=== PATIENT | female | born 2000 | race Caucasian/White ===

== ENCOUNTER 2021-04-17 12:03 | Emergency (ER) | payer OTHER, SELFPAY ==
[2021-04-17 14:30] VITALS: BP 126/77; PULSE 91; RESP 18; TEMP 37.4; O2SAT 100; BMI 35.6
--- NOTE | 2021-04-17 15:08 | HMH.EDUTC ---
[facility] [place] Clinical Impression: Strep throat Disposition: Home, Self-Care Condition on Discharge: Good Instructions: DI for Strep Throat, Strep Throat, Amoxicillin Additional Instructions: *Monitor Temp, Over the counter Motrin or Tylenol as directed/as needed Tylenol every 4 hours and Motrin every 6 hours (as long as your family doctor has told you that you can take it) for fever or pain. and straight to ER if unable to lower temp less than 101.0 after medication given *Warm salt water gargles may help to soothe the throat *Throat Lozenges *Warm fluids like tea with honey may help to soothe the throat *Sleep elevated *Humidifier/Vaporizer *Flonase 2 sprays in each nostril daily but be aware that it may take 2-3 days before you notice improvement Take antibiotics as prescribed Follow up IMMEDIATELY for new or worsening symptoms or no Noticeable improvement over the next 48-72 hours. 911 for difficulty breathing or swallowing Prescriptions: Amoxicillin [Amoxicillin 875MG Tab] 875 mg PO Q12H #20 tab Transmission Status: Pending to [facility] # Fluticasone Propionate [Flonase 50mcg nasal spray 16gm] 1 spr NS DAILY #1 each Transmission Status: Pending to [facility] # Referrals: Marysol Santacruz APRN [Primary Care Provider] - As needed Time of Disposition: 15:13 Medical Decision Making - Travis Inquiry Pt receiving controlled substance: No Travis was queried for this patient: No Vital Signs: 04/17/21 14:30 Temperature 99.3 F Temperature Source Oral Pulse Rate [Right Brachial] 91 H Respiratory Rate 18 Blood Pressure [Right Arm] 126/77 Blood Pressure Mean [Right Arm] 93 Blood Pressure Source [Right Arm] Automatic Cuff Blood Pressure Position [Right Arm] Sitting 02 Sat by Pulse Oximetry 100 Oxygen Delivery Method Room Air - Lab Data Lab results reviewed: Yes: I reviewed the patient's lab results. [facility] [place] - General Stated complaint: Runny nose,Cough,head congestion Time Seen by Provider: 04/17/21 15:08 Mode of Arrival: Ambulatory Source of Information: Patient Limitations: No Limitations Description of Symptoms (Recalled from Triage Doc. by RN): PATIENT C/O RUNNY NOSE, COUGH, SORE THROAT, AND CONGESTION HEENT Symptoms (Recalled from RN notes): Yes Resp Symptoms (Recalled from RN notes): No Skin Symptoms (Recalled from RN notes): No MS Symptoms (Recalled from RN notes): No Functional Status (Recalled from RN notes): WNL - History of Present Illness Provider Complaint: Patient states that she has been having cough, sore throat, and sinus congestion and pressure States that last night she looked at her throat and noticed it was red and swollen - Related Data Previous Rx's Medication Instructions Recorded Azithromycin [Zithromax 250mg 250 mg PO DIRECTED #6 tab 10/10/19 tab] Amoxicillin [Amoxicillin 875MG 875 mg PO Q12H #20 tab 04/17/21 Tab] Fluticasone Propionate [Flonase 1 spr NS DAILY #1 each 04/17/21 50mcg nasal spray 16gm] Allergies Allergy/AdvReac Type Severity Reaction Status Date / Time No Known Allergies Allergy Verified 10/20/18 16:06 - Worker's Comp Is this a Worker's Comp case?: No [facility] History - Hepatitis A Screen Drug use history?: No High risk sexual behaviors?: No History of sexually transmitted infection?: No Currently employed?: No Childcare worker?: No Do you have indoor plumbing?: Yes Do you have electricity?: Yes Attestation statement:: This patient has been screened for Hepatitis A risk factors. I have reviewed the patient's past medical history: Yes Medical History: Denies:: Cancer, Diabetes Mellitus Type 1, Diabetes Mellitus Type 2, Hypertension, MRSA Laterality Cases: Bilateral: Myringotomy (Ear Tubes), Tonsillectomy Amputation: No Fractures: No - Social History Smoking Status: Current every day smoker Tobacco Type: cigarettes # Packs/Day (cigarettes): 1 Alcohol Intake: never Oc
[2021-04-17 15:16] VITALS: BP 126/77; PULSE 91; RESP 18; TEMP 37.4; O2SAT 100
[2021-04-17 22:16] LABS: UTC Strep Screen (Rapid) Positive (Negative)
== END 2021-04-17 15:39 | disposition home or self-care (01) ==
PROVIDERS: Emergency Provider Nurse Practitioner; PCP Nurse Practitioner Family
DX: J02.0 Streptococcal pharyngitis (principal)
CPT/HCPCS: 87880; 99202; G0463

== ENCOUNTER 2021-08-27 11:44 | Emergency (ER) | payer OTHER, SELFPAY ==
[2021-08-27 14:57] VITALS: BP 117/80; PULSE 95; RESP 18; TEMP 37.7; O2SAT 100; BMI 36.0
[2021-08-27 15:21] LABS: UTC Influenza A Antigen Negative (Negative)
[2021-08-27 15:22] LABS: UTC Influenza B Antigen Negative (Negative)
[2021-08-27 15:44] LABS: Strep Scrn Group A (Rapid) Negative (Negative)
--- NOTE | 2021-08-27 16:26 | HMH.EDUTC ---
[facility] [place] Clinical Impression: Viral syndrome, Exposure to COVID-19 virus, Bronchitis Disposition: Home, Self-Care Condition on Discharge: Good Instructions: DI for Acute Bronchitis, DI for Viral Syndrome, DI for COVID-19 (Suspected or Confirmed ), Preventing the Spread of Coronavirus Discharge Instructions Additional Instructions: Drink plenty of fluids. Take tylenol or ibuprofen for pain or fever. Take the medications as directed. Follow up with your regular doctor. GO TO THE ER FOR ANY WORSENING SYMPTOMS Quarantine until you know the results of your covid-19 test. Notify your school or workplace of your results and follow their instructions regarding return to work/school. Prescriptions: Brompheniramine/Pseudoephed/Dm [Bromfed Dm Cough Syrup] 5 ml PO Q6HP PRN #240 ml PRN Reason: Cough Transmission Status: Received by [facility] methylPREDNISolone [Medrol] 4 mg PO DIRECTED 6 Days #21 packet Transmission Status: Received by [facility] Azithromycin [Z-Chaz 250mg Tab*] 250 mg PO UD DOSE PK #6 tab Transmission Status: Received by [facility] Referrals: Uri Nino MD [Primary Care Provider] - Time of Disposition: 16:36 Medical Decision Making - Medical Records Medical records reviewed: No: I reviewed the patient's medical records. - Travis Inquiry Pt receiving controlled substance: No Vital Signs: 08/27/21 14:57 08/27/21 16:42 Temperature 99.9 F H 99.9 F H Temperature Source Oral Pulse Rate 95 H Pulse Rate [Left] 95 H Respiratory Rate 18 18 Blood Pressure 117/80 Blood Pressure [Right Arm] 117/80 Blood Pressure Mean [Right Arm] 92 02 Sat by Pulse Oximetry 100 - Lab Data Lab results reviewed: Yes: I reviewed the patient's lab results. Lab Results 08/27/21 15:01: Group A Strep Rapid Negative 08/27/21 15:01: Influenza Type A Ag Negative, Influenza Type B Ag Negative Orders (Tests/Meds): ORDERS Category Date Time Status Strep Screen Confirmation Stat Micro 08/27/21 15:01 Received [facility] [place] HPI - General Stated complaint: cough, weakness Time Seen by Provider: 08/27/21 15:40 Mode of Arrival: Ambulatory Source of Information: Patient Limitations: No Limitations Description of Symptoms (Recalled from Triage Doc. by RN): pt c/o a cough, nasal congestion/drainage, and weakness since yesterday. HEENT Symptoms (Recalled from RN notes): Yes (congestion) Resp Symptoms (Recalled from RN notes): Yes (cough) Skin Symptoms (Recalled from RN notes): No MS Symptoms (Recalled from RN notes): No Functional Status (Recalled from RN notes): wnl - History of Present Illness Provider Complaint: She c/o a nonproductive cough, chest congestion, low grade fever, and body aches since yesterday. - Related Data Previous Rx's Medication Instructions Recorded Azithromycin [Zithromax 250mg 250 mg PO DIRECTED #6 tab 10/10/19 tab] Amoxicillin [Amoxicillin 875MG 875 mg PO Q12H #20 tab 04/17/21 Tab] Fluticasone Propionate [Flonase 1 spr NS DAILY #1 each 04/17/21 50mcg nasal spray 16gm] Azithromycin [Z-Chaz 250mg Tab*] 250 mg PO UD DOSE PK #6 tab 08/27/21 Brompheniramine/Pseudoephed/Dm 5 ml PO Q6HP PRN #240 ml 08/27/21 [Bromfed Dm Cough Syrup] methylPREDNISolone [Medrol] 4 mg PO DIRECTED 6 Days #21 08/27/21 packet Allergies Allergy/AdvReac Type Severity Reaction Status Date / Time No Known Allergies Allergy Verified 10/20/18 16:06 - Worker's Comp Is this a Worker's Comp case?: No [facility] History - Hepatitis A Screen Drug use history?: No High risk sexual behaviors?: No History of sexually transmitted infection?: No Currently employed?: No Childcare worker?: No Do you have indoor plumbing?: Yes Do you have electricity?: Yes Attestation statement:: This patient has been screened for Hepatitis A risk factors. I have reviewed the patient's past medical history: Yes Medic
[2021-08-27 16:42] VITALS: BP 117/80; PULSE 95; RESP 18; TEMP 37.7
== END 2021-08-27 16:42 | disposition home or self-care (01) ==
PROVIDERS: Emergency Provider Nurse Practitioner Family; PCP Family Medicine
DX: B34.9 Viral infection, unspecified (principal); Z20.822 Contact with and (suspected) exposure to COVID-19; F17.210 Nicotine dependence, cigarettes, uncomplicated
CPT/HCPCS: 87430; 87804; 99203; C9803; G0463; U0003; U0005

== ENCOUNTER → 2021-10-05 16:06 | Outpatient (CLI) | payer OTHER, SELFPAY | PROVIDERS: Visit Provider Obstetrics & Gynecology | DX: Z34.90 Encounter for supervision of normal pregnancy, unspecified, unspecified trimester (principal) | CPT/HCPCS: 84702 ==

== ENCOUNTER → 2021-10-09 14:14 | Outpatient (CLI) | payer OTHER, SELFPAY | PROVIDERS: Visit Provider Obstetrics & Gynecology | DX: Z34.90 Encounter for supervision of normal pregnancy, unspecified, unspecified trimester (principal) | CPT/HCPCS: 36415; 84702 ==

== ENCOUNTER → 2021-10-12 14:58 | Outpatient (CLI) | payer OTHER, SELFPAY ==
--- NOTE | 2021-10-12 14:58 | US_ITS ---
FINAL REPORT CLINICAL HISTORY: Dates FINDINGS: PELVIC ULTRASOUND A single living intrauterine is present. A yolk sac is present. Cardiac activity is confirmed at 146 beats per minute. Estimated gestational age is 7 weeks 3 days based on the crown-rump length of 1.2 cm. Appropriate amount of fluid is present. The right ovary measures 2.5 cm. The left ovary measures 3.2 cm. IMPRESSION: Single living intrauterine with a gestational age of 7 weeks 3 days. Reviewed, Interpreted and Dictated by Solo Coats III, MD Transcribed by Jeison Enamorado Authenticated by Solo Coats III, MD on 10/12/2021 04:19:09 PM [facility]
[2021-10-12 16:34] LABS: Basophils # 0.1 K/mm3 (0-0.2); Basophils % 0.8 % (0.1-2.0); Eosinophils # 0.1 K/mm3 (0.0-0.4); Eosinophils % 0.6 % (0.1-12.0); Hematocrit 38.9 % (37.0-47.0); Hemoglobin 12.5 g/dL (12.2-16.2); Lymphocytes # 2.5 K/mm3 (0.7-4.5); Lymphocytes % 23.7 % (10-50); Mean Corpuscular HGB Conc 32.3 g/dL (31.8-35.4); Mean Corpuscular Hemoglobin 28.3 pg (27.0-31.2); Mean Corpuscular Volume 87.8 fl (81-99); Mean Platelet Volume 9.3 fl (7.4-10.4); Monocytes # 0.4 K/mm3 (0.1-1.0); Monocytes % 3.8 % (1.7-9.3); Neutrophils # 7.4 K/mm3 (1.8-7.8); Neutrophils % 71.1 % (37.0-80.0); Platelet Count 251 K/mm3 (142-424); Red Blood Count 4.42 M/mm3 (4.20-5.40); Red Cell Distribution Width 13.6 % (11.5-17.5); White Blood Count 10.5 K/mm3 (4.8-10.8)
[2021-10-14 08:15] LABS: HIV Screen 4th Generation wRfx Non Reactive (Non Reactive)
[2021-10-14 11:18] LABS: Hepatitis B Surface Antigen Negative (Negative); Hepatitis C Antibody <0.1 s/co ratio (0.0-0.9); Rapid Plasma Reagin Ab Titer Non Reactive (NonRea<1:1)
== END ==
PROVIDERS: PCP Family Medicine; Visit Provider Obstetrics & Gynecology
DX: Z34.90 Encounter for supervision of normal pregnancy, unspecified, unspecified trimester (principal)
CPT/HCPCS: 36415; 76801; 85025; 86592; 86703; 86762; 86850; 87340; 87380; G0432

== ENCOUNTER → 2022-01-11 13:56 | Outpatient (CLI) | payer OTHER, SELFPAY ==
--- NOTE | 2022-01-11 13:56 | US_ITS ---
FINAL REPORT CLINICAL HISTORY: Ob complete FINDINGS: There is a single live intrauterine gestation. Presentation is cephalic. The cervix is closed and measures 3.16 cm. Placenta is posterior grade. movement is noted. Are rate is measured at 132 beats per minute. Three-vessel cord with satisfactory umbilical cord insertion. Four-chamber heart is noted. brain and ventricles are unremarkable. Chest and diaphragm are unremarkable. ABDOMEN: Both kidneys are unremarkable. SPINE: No anomalies identified. AMNIOTIC FLUID: Appropriate amount. MEASUREMENTS: ULTRASOUND AGE: 21 weeks 0 days. GESTATION AGE: 20 weeks 3 days. ESTIMATED WEIGHT: 383 g GROWTH PERCENTILE: 70% BPD: 5 cm corresponding with 21 weeks 1 days. OFD: 6.6 cm corresponding with 21 weeks 6 days. HC: 18.4 cm corresponds with 20 weeks 6 days. AC: 15.8 cm corresponding with 21 weeks 0 days. FL: 3.4 cm corresponding with 20 weeks 6 days. CEREBELLUM: 2 cm corresponding with 20 weeks 3 days. HUMERUS: 3.3 cm corresponding with 21 weeks 1 days. HC/AC: 1.16 CI: 75% FL/BPD: 69% FL/AC: 22% IMPRESSION: Single living IUP with an ultrasound age of 21 weeks 0 days. Reviewed, Interpreted and Dictated by Solo Coats III, MD Transcribed by Linsey Black Authenticated and . [facility]
== END ==
PROVIDERS: PCP Emergency Medicine; Visit Provider Obstetrics & Gynecology
DX: Z34.90 Encounter for supervision of normal pregnancy, unspecified, unspecified trimester (principal)
CPT/HCPCS: 76811

== ENCOUNTER → 2022-02-20 08:27 | Outpatient (CLI) | payer OTHER, SELFPAY ==
[2022-02-20 08:43] LABS: Basophils # 0.1 K/mm3 (0-0.2); Basophils % 0.7 % (0.1-2.0); Eosinophils # 0.1 K/mm3 (0.0-0.4); Eosinophils % 0.5 % (0.1-12.0); Hematocrit 35.7 % (37.0-47.0); Hemoglobin 10.8 g/dL (12.2-16.2); Lymphocytes # 2.9 K/mm3 (0.7-4.5); Lymphocytes % 19.9 % (10-50); Mean Corpuscular HGB Conc 30.4 g/dL (31.8-35.4); Mean Corpuscular Hemoglobin 28.6 pg (27.0-31.2); Mean Corpuscular Volume 94.1 fl (81-99); Mean Platelet Volume 10.1 fl (7.4-10.4); Monocytes # 0.6 K/mm3 (0.1-1.0); Neutrophils % 74.8 % (37.0-80.0); Platelet Count 263 K/mm3 (142-424); Red Blood Count 3.79 M/mm3 (4.20-5.40); Red Cell Distribution Width 13.5 % (11.5-17.5); White Blood Count 14.7 K/mm3 (4.8-10.8)
[2022-02-20 08:53] LABS: Glucose,Fasting 102 mg/dl (74-100)
[2022-02-20 10:17] LABS: Glucose 1 Hour 204 mg/dL (74-100)
== END ==
PROVIDERS: PCP Nurse Practitioner Family; Visit Provider Obstetrics & Gynecology
DX: Z34.90 Encounter for supervision of normal pregnancy, unspecified, unspecified trimester (principal)
CPT/HCPCS: 36415; 82951; 85025

== ENCOUNTER → 2022-04-06 13:05 | Outpatient (CLI) | payer OTHER, SELFPAY ==
--- NOTE | 2022-04-06 13:05 | US_ITS ---
FINAL REPORT CLINICAL HISTORY: LGA with KIERA FINDINGS: There is a single live intrauterine gestation. Presentation is cephalic. Placenta is posterior, high, grade 2. movement and practice breathing is seen. Heart rate is 149 beats per minute. AMNIOTIC FLUID: Appropriate amount. KIERA: 13.3 cm MEASUREMENTS: ULTRASOUND AGE: 34 weeks 2 days. GESTATION AGE: 32 weeks 4 days. ESTIMATED WEIGHT: 2248 g GROWTH PERCENTILE: AUA percentile is 27%. LMP percentile is 75% BPD: 8.8 cm corresponding with 35 weeks 3 days. OFD: 10.9 cm corresponding with 35 weeks 0 days. HC: 31.0 cm corresponding with 34 weeks 5 days. AC: 29.2 cm corresponding with 33 weeks 2 days. FL: 6.5 cm corresponding with 33 weeks 5 days. HC/AC: 1.06 CI: 80% FL/BPD: 75% FL/AC: 22% IMPRESSION: Single living IUP with an ultrasound age of 34 weeks 2 days. KIERA of 13.3 cm Reviewed, Interpreted and Dictated by Ortega Painter MD Transcribed by Linsey Black Authenticated and [facility]
== END ==
PROVIDERS: PCP Nurse Practitioner Family; Visit Provider Obstetrics & Gynecology
DX: O36.60X0 Maternal care for excessive fetal growth, unspecified trimester, not applicable or unspecified (principal)
CPT/HCPCS: 76816; 76819

== ENCOUNTER 2022-04-13 14:04 | Outpatient (CLI) | payer OTHER, SELFPAY ==
[2022-04-13 14:21] VITALS: BMI 36.3
[2022-04-13 14:46] VITALS: BP 124/81; PULSE 99; RESP 18; TEMP 36.7; O2SAT 100; BMI 36.3
[2022-04-13 14:47] LABS: Microscopic, Urine URINE MICROSCOPIC (MICROSCOPIC)
[2022-04-13 14:56] LABS: Appearance,Urine CLEAR (Clear); Bilirubin,Urine Negative (Negative); Blood, Urine Negative (Negative); Color,Urine YELLOW (Yellow); Glucose,Urine (UA) Negative (Negative); Ketones,Urine 1+ (Negative); Leukocyte Esterase,Urine Negative (Negative); Nitrate,Urine Negative (Negative); PH,Urine 6.5 (5.0-8.5); Protein,Urine Negative (Negative); Urobilinogen,Urine 0.2 EU/dl (0.2)
[2022-04-13 15:07] LABS: Bacteria,Urine Trace /lpf; RBC,Urine Occasional #/hpf (0-3); Squamous Epithelial Cell,Urine Occasional #/hpf (0-5)
[2022-04-13 15:08] LABS: Amphetamine/Metha Screen,Urine Negative ng/ml (<1000)
[2022-04-13 15:09] LABS: Barbiturates Screen,Urine Negative ng/ml (<200); Benzodiazepines Screen,Urine Negative ng/ml (<200)
[2022-04-13 15:10] LABS: Cannabinoid Screen,Urine Negative ng/ml (<50)
[2022-04-13 15:11] LABS: Cocaine Screen,Urine Negative ng/ml (<300); Methadone Screen,Urine Negative ng/ml (<300)
[2022-04-13 15:12] LABS: Opiate Screen,Urine Negative ng/ml (<300)
[2022-04-13 15:13] LABS: Phencyclidine Screen,Urine Negative ng/ml (<25)
[2022-04-13 15:25] LABS: Fetal Fibronectin (Rapid) Negative (Negative)
== END 2022-04-13 16:04 | disposition home or self-care (01) ==
LOC: OBOUT 14:06 → OB 14:06
PROVIDERS: PCP Emergency Medicine; Visit Provider Obstetrics & Gynecology
DX: O47.03 False labor before 37 completed weeks of gestation, third trimester (principal); Z3A.33 33 weeks gestation of pregnancy
CPT/HCPCS: 59025; 80305; 81001; 82731; 96365; G0463

== ENCOUNTER 2022-04-19 01:54 | Outpatient (CLI) | payer OTHER, SELFPAY ==
[2022-04-19 02:11] VITALS: RESP 18; BMI 37.8
[2022-04-19 02:46] LABS: Microscopic, Urine URINE MICROSCOPIC (MICROSCOPIC)
[2022-04-19 02:49] LABS: Appearance,Urine CLEAR (Clear); Bilirubin,Urine Negative (Negative); Blood, Urine Negative (Negative); Color,Urine YELLOW (Yellow); Glucose,Urine (UA) Negative (Negative); Ketones,Urine Negative (Negative); Leukocyte Esterase,Urine Negative (Negative); Nitrate,Urine Negative (Negative); Protein,Urine Negative (Negative); Specific Gravity, Urine >= 1.030 (1.005-1.030); Urobilinogen,Urine 0.2 EU/dl (0.2)
[2022-04-19 03:00] LABS: Barbiturates Screen,Urine Negative ng/ml (<200)
[2022-04-19 03:01] LABS: Amphetamine/Metha Screen,Urine Negative ng/ml (<1000); Benzodiazepines Screen,Urine Negative ng/ml (<200)
[2022-04-19 03:02] LABS: Cannabinoid Screen,Urine Negative ng/ml (<50)
[2022-04-19 03:03] LABS: Cocaine Screen,Urine Negative ng/ml (<300); Methadone Screen,Urine Negative ng/ml (<300)
[2022-04-19 03:04] LABS: Opiate Screen,Urine Negative ng/ml (<300)
[2022-04-19 03:05] LABS: Phencyclidine Screen,Urine Negative ng/ml (<25)
[2022-04-19 03:15] LABS: Bacteria,Urine Trace /lpf; Squamous Epithelial Cell,Urine Occasional #/hpf (0-5); WBC,Urine Occasional #/hpf (0-3)
[2022-04-19 03:23] LABS: Fetal Fibronectin (Rapid) Negative (Negative)
== END 2022-04-19 04:46 | disposition home or self-care (01) ==
LOC: OBOUT 01:55 → OB 01:56
PROVIDERS: PCP Emergency Medicine; Visit Provider Obstetrics & Gynecology
DX: O47.03 False labor before 37 completed weeks of gestation, third trimester (principal); Z3A.34 34 weeks gestation of pregnancy
CPT/HCPCS: 80305; 81001; 82731

== ENCOUNTER → 2022-04-24 13:04 | Outpatient (CLI) | payer OTHER, SELFPAY ==
--- NOTE | 2022-04-24 13:10 | US_ITS ---
FINAL REPORT CLINICAL HISTORY: lga; gdm; amniotic fluid is 23.3 cm FINDINGS: There is a single live intrauterine gestation. Presentation is cephalic. Placenta is posterior, fundal and grade 2. Cardiac activity is confirmed at 146 bpm. The the fetus is active. AMNIOTIC FLUID: Appropriate amount. SD ratio: 2.1 MEASUREMENTS: ULTRASOUND AGE: 37 weeks 0 days. GESTATION AGE: 35 weeks 1 days. ESTIMATED WEIGHT: 3042 g GROWTH PERCENTILE: 89% BPD: 9.3 cm consistent with 37 weeks 5 days. OFD: 11.3 cm consistent with 37 weeks 5 days. HC: 32.4 cm consistent with 36 weeks 5 days. AC: 33.1 cm consistent with 37 weeks 0 days. FL: 7.1 cm consistent with 36 weeks 1 days. HC/AC: 0.98 CI: 82% FL/BPD: 76% FL/AC: 21% Breathin Movement: 2 Tone: 2 Fluid volume: 2 BPP score: 8/8 IMPRESSION: Single living IUP with an ultrasound age of 37 weeks 0 days. Reviewed, Interpreted and Dictated by Solo Coats III, MD Transcribed by Jeison Enamorado Authenticated and [facility]
== END ==
PROVIDERS: PCP Emergency Medicine; Visit Provider Obstetrics & Gynecology
DX: O36.60X0 Maternal care for excessive fetal growth, unspecified trimester, not applicable or unspecified (principal)
CPT/HCPCS: 76816; 76819; 76820

== ENCOUNTER → 2022-05-01 16:53 | Outpatient (CLI) | payer OTHER, SELFPAY | PROVIDERS: Visit Provider Obstetrics & Gynecology | DX: Z34.90 Encounter for supervision of normal pregnancy, unspecified, unspecified trimester (principal) | CPT/HCPCS: 86403 ==

== ENCOUNTER 2022-05-15 05:05 | Inpatient (IN) | payer OTHER, SELFPAY ==
--- NOTE | 2022-05-14 14:46 | SUR.PREOP ---
Attempted to call pt regarding preop labs and covid PCR. Pt's cell phone has been turned off and both contacts were attempted with no answer.
[2022-05-15] VITALS (10 sets, daily range): BP systolic 118–168; BP diastolic 68–95; PULSE 95–140; RESP 16–17; TEMP 36.1–37; O2SAT 97–100; BMI 38.4
[2022-05-15 06:28] LABS: Coronavirus 19, PCR Not Detected (NotDetected); Influenza A, PCR Not Detected (NotDetected); Influenza B, PCR Not Detected (NotDetected)
[2022-05-15 06:28] LABS: Microscopic, Urine URINE MICROSCOPIC (MICROSCOPIC)
[2022-05-15 06:30] LABS: Basophils # 0.1 K/mm3 (0-0.2); Basophils % 0.6 % (0.1-2.0); Eosinophils % 0.3 % (0.1-12.0); Hematocrit 30.2 % (37.0-47.0); Hemoglobin 9.9 g/dL (12.2-16.2); Lymphocytes % 22.2 % (10-50); Mean Corpuscular HGB Conc 32.8 g/dL (31.8-35.4); Mean Corpuscular Hemoglobin 25.9 pg (27.0-31.2); Mean Corpuscular Volume 79.1 fl (81-99); Mean Platelet Volume 9.8 fl (7.4-10.4); Monocytes # 0.5 K/mm3 (0.1-1.0); Monocytes % 3.6 % (1.7-9.3); Neutrophils # 9.7 K/mm3 (1.8-7.8); Neutrophils % 73.3 % (37.0-80.0); Platelet Count 245 K/mm3 (142-424); Red Blood Count 3.82 M/mm3 (4.20-5.40); Red Cell Distribution Width 15.4 % (11.5-17.5); White Blood Count 13.2 K/mm3 (4.8-10.8)
[2022-05-15 06:33] LABS: Appearance,Urine CLEAR (Clear); Bilirubin,Urine Negative (Negative); Blood, Urine TRACE-L (Negative); Color,Urine YELLOW (Yellow); Glucose,Urine (UA) Negative (Negative); Ketones,Urine TRACE (Negative); Leukocyte Esterase,Urine 1+ (Negative); Nitrate,Urine Negative (Negative); Protein,Urine Negative (Negative); Specific Gravity, Urine 1.025 (1.005-1.030); Urobilinogen,Urine 0.2 EU/dl (0.2)
[2022-05-15 06:43] LABS: Chloride 105 mmol/L (98-107); Potassium 4.4 mmoL/L (3.5-5.1); Sodium 135 mmol/L (136-145)
[2022-05-15 06:46] LABS: Blood Urea Nitrogen 7 mg/dl (7-17); Creatinine Clearance Estimated 354 mL/min (50-200); Estimated Glomerular Filt Rate 200 ml/min (>60); GFR (African American) 242 ML/MIN (>60)
[2022-05-15 06:47] LABS: Anion Gap 14.4 mEq/L (5-15); Calcium 8.6 mg/dl (8.4-10.2); Carbon Dioxide 20 mmol/L (22.0-30.0); Glucose 84 mg/dl (74-100)
[2022-05-15 06:52] LABS: Amphetamine/Metha Screen,Urine Negative ng/ml (<1000)
[2022-05-15 06:53] LABS: Barbiturates Screen,Urine Negative ng/ml (<200); Benzodiazepines Screen,Urine Negative ng/ml (<200)
[2022-05-15 06:54] LABS: Cannabinoid Screen,Urine Negative ng/ml (<50); Methadone Screen,Urine Negative ng/ml (<300)
[2022-05-15 06:55] LABS: Cocaine Screen,Urine Negative ng/ml (<300)
[2022-05-15 06:56] LABS: Opiate Screen,Urine Negative ng/ml (<300); Phencyclidine Screen,Urine Negative ng/ml (<25)
[2022-05-15 06:58] LABS: Bacteria,Urine Trace /lpf; RBC,Urine Occasional #/hpf (0-3)
--- NOTE | 2022-05-15 07:24 | EXP.ANES.CKL ---
[facility] Medical History Gestational diabetes New onset seizure Family History Other No significant family history Social History Smoking Status: Former smoker second hand exposure: No alcohol intake: never substance use type: denies use current occupational status: unemployed Travel in the last 8 weeks: None adopted: No caregiver/support person: Yes foster care: No household members: spouse, family and children housing: house lives independently: Yes marital status: number of children: 1 education level: other service: No snf: No current occupational exposures/hazards: No sexually active: Yes diet: diabetic physical activity: none [facility] Anesthesia Checklist Patient Identification Patient Identification: Arm Band and Verbal (Name & ) Structural Data Admitted From: Home Planned Operative Procedure/s: Primary C/S Consent for Planned Operative Procedure(s) Verified: Yes NPO Status Verified Time NPO: 00:00 Chart Verification Results Verified: CBC and BMP Additional verifications Patient : Yes Airway Assessment C-Spine Mobility Assessed: Yes TMJ Mobility Assessed: Yes Dentition: Good Dentition Neurological Assessment Level of Consciousness: Awake Hx Seizures: Yes Numbness or tingling in extremities: No Anesthesia Plan Anesthesia Risk discussed: Yes Anesthesia Plan: Verified ASA Class: II Anesthesia Type: Spinal
--- NOTE | 2022-05-15 07:48 | EXP.HP ---
History of Present Illness *Admission Date: 05/15/22 *Reason for visit:: C Section *History of present illness: 21 yo @ 38 wks Dating by 7 10/16 ultrasound complicated by GDMA2 managed by oral hypoglycemics, macrosomia and polyhydramnios She declined ONUR and requested elective primary CS [facility] Medical History Gestational diabetes New onset seizure Family History Other No significant family history Social History Smoking Status: Former smoker second hand exposure: No alcohol intake: never substance use type: denies use current occupational status: unemployed Travel in the last 8 weeks: None adopted: No caregiver/support person: Yes foster care: No household members: spouse, family and children housing: house lives independently: Yes marital status: number of children: 1 education level: other service: No jail: No current occupational exposures/hazards: No sexually active: Yes diet: diabetic physical activity: none Review of Systems Constitutional Constitutional: Reports system reviewed and no additional complaints, except as documented and Denies headache(s) ENT Ears, Nose, Mouth, and Throat: Denies headache(s) *Genitourinary Genitourinary: Denies abnormal vaginal bleeding *Neurologic Neurologic: Denies headache(s) and Denies other visual disturbances Meds Home Medications and Allergies Home Medications Medication Instructions Recorded Confirmed Type blood-glucose meter #1 ea 02/20/22 05/11/22 Rx glyburide 5 mg tablet 5 mg PO AM Diabetes 04/19/22 05/15/22 History New Prescriptions to Start Prescriptions: Allergies Allergy/AdvReac Type Severity Reaction Status Date / Time No Known Allergies Allergy Verified 05/11/22 13:20 Exam Data for Last 24 hours Vital signs and Labs for Last 24 Hours: Temp Pulse Resp BP Pulse Ox 97.4 F L 100 H 16 156/68 H 100 05/15/22 14:39 05/15/22 14:39 05/15/22 09:20 05/15/22 14:39 05/15/22 09:20 Laboratory Results - last 24 hr 05/15/22 05:26: Urine Color Yellow, Urine Appearance Clear, Urine pH 6.0, Ur Specific [place] 1.025, Urine Protein Negative, Urine Glucose (UA) Negative, Urine Ketones Trace, Urine Blood Trace-l, Urine Nitrate Negative, Urine Bilirubin Negative, Urine Urobilinogen 0.2, Ur Leukocyte Esterase 1+ A, Urine RBC Occasional, Urine WBC 3-5, Ur Squamous Epith Cells 5-10, Urine Bacteria Trace 05/15/22 05:26: Urine Opiates Screen Negative, Urine Methadone Screen Negative, Ur Barbituates Screen Negative, Ur Phencyclidine Scrn Negative, Ur Amphetamines Screen Negative, U Benzodiazepines Scrn Negative, Urine Cocaine Screen Negative, U Marijuana (THC) Screen Negative 05/15/22 05:40: WBC 13.2 H, RBC 3.82 L, Hgb 9.9 L, Hct 30.2 L, MCV 79.1 L, MCH 25.9 L, MCHC 32.8, RDW 15.4, Plt Count 245, MPV 9.8, Neut % (Auto) 73.3, Lymph % (Auto) 22.2, Douglas % (Auto) 3.6, Eos % (Auto) 0.3, Baso % (Auto) 0.6, Neut # (Auto) 9.7 H, Lymph # (Auto) 3.0, Douglas # (Auto) 0.5, Eos # (Auto) 0.0, Baso # (Auto) 0.1 05/15/22 05:40: Sodium 135 L, Potassium 4.4, Chloride 105, Carbon Dioxide 20 L, Anion Gap 14.4, BUN 7, Creatinine 0.40 L, Estimated Creat Clear 354 H, Estimated GFR 200, Est GFR ( Amer) 242, Glucose 84, Calcium 8.6 05/15/22 05:40: Blood Type AB Positive, Antibody Screen Negative, Crossmatch (AHG) See Detail 05/15/22 05:40: SARS-CoV-2 (PCR) Not detected, Influenza A Untype (PCR) Not detected, Influenza Type B (PCR) Not detected 05/15/22 07:26: POC Glucose 88 05/15/22 07:47: Urine Color Yellow, Urine Appearance Clear, Urine pH 6.5, Ur Specific [place] 1.010, Urine Protein Negative, Urine Glucose (UA) Negative, Urine Ketones Negative, Urine Blood Trace-l, Urine Nitrate Negative, Urine Bilirubin Negative, Urine Urobilinog
--- NOTE | 2022-05-15 08:16 | SUR.OPER ---
0800 viable infant boy born
--- NOTE | 2022-05-15 08:21 | SUR.OPER ---
0815 QBL protocol initiated in OR. Dr. Ulloa aware. 2 units of blood placed on hold. second IV 18g obtained in right hand. methergine 0.2mg admin IM by gianfranco barillas.
--- NOTE | 2022-05-15 09:00 | EXP.ANES.I ---
[facility] Anesthesia Record Part I Anesthesia Record I Intake, IV Amount: 1,400 Estimated blood loss (mL): 1,200 Urine output (mL): 100 Blood Products used (#): none Blood Pressure: 168/95 SaO2: 97 Pulse Rate: 102 Respiratory Rate: 16 Temperature: 97 F Patient is:: Awake and Stable Stable to PACU at:: 08:50
[2022-05-15 09:05] LABS: POC Glucose,Bedside 112 (70-110)
--- NOTE | 2022-05-15 09:23 | SUR.PHASEI ---
0852- Dr. canada notified of QBL being 637 in the PACU, after initiating QBL >1000 in the OR by Dr. canada verbal orders. No further orders at this time. Vitals being taken Q5M in the pacu. 0900- pt blood sugar at this time via finger stick is 112. Rfeeback,pharmaceutical salesperson aware 0910- lab at bedside to draw H&H per Dr. canada orders.
[2022-05-15 09:30] LABS: Hematocrit 28.7 % (37.0-47.0); Hemoglobin 9.1 g/dL (12.2-16.2)
--- NOTE | 2022-05-15 09:33 | SUR.PHASEI ---
0919- detailed report called to kimberly braxton on OB floor. 0921- pt left in stable condition with kimberly braxton in pt room by kimberly hickey and kimberly ventura
--- NOTE | 2022-05-15 09:38 | PC.NURSE ---
Time Out performed at 0837 for tap block. Procedure started at 0838 and ended at 0844.
--- NOTE | 2022-05-15 10:59 | EXP.OP.NOTE ---
Date of procedure: 05/15/22 Pre-op Diagnosis:: 1. 38 weeks 2. GDMA2 3. Macrosomia 4. Polyhydramnios 5. Anemia Post-op Diagnosis:: Same Procedure performed:: Primary Low Transverse C Section Surgeon:: Lisbet Ulloa MD [employer] Repairer(s):: Dave Zafar MD POULTRY FARM[employer] MEAT:: Luis Alvares Anesthesia: spinal Estimated blood loss (mL): 1,200 Operative findings:: enlarged vasculature of uterus normal ovaries and fallopian tubes Operative note:: The patient was taken to the OR and spinal was administered without difficulty. She was prepped and draped in normal sterile fashion. A pfannenstiel skin incision was made with the scalpel and carried down to the fascia. The fascia was incised in the midline and sharply dissected off the rectus muscles. The muscles were in the midline and the peritoneum was entered sharply and extended bluntly. The Brayden-O self retaining retractor was placed in the abdomen and a bladder flap was created. The uterus was incised in the lower uterine segment in a transverse fashion and extended bluntly. Amniotomy was performed and abundant, clear fluid noted. The infant was delivered in controlled fashion, without complication or shoulder dystocia. The was vigorous at and handed to awaiting pediatricians for evaluation after cord clamped and cut. Cord blood was collected and a cord segment was preserved. The placenta was manually extracted and noted to be intact. The uterus was repaired with 0-vicryl in a running/locked fashion, in 2 layers. The bladder flap was closed with 2-0 vicryl. The peritoneum was closed with 2-0 vicryl in a running fashion. The fascia was closed with #1 vicryl in a running fashion. The subcutaneous fat was closed with 2-0 vicryl in an interrupted fashion. The skin was closed with 2-0 Stratafix. The patient tolerated the procedure well. Sponge, lap, needle and instrument counts were correct x 2. She was taken to PACU awake and in stable condition. Condition: stable Disposition: PACU Specimens:: none Complications:: none
[2022-05-15 11:17] LABS: POC Glucose,Bedside 88 (70-110)
--- NOTE | 2022-05-15 14:38 | P.PNANES_ITS ---
[facility] Anesthesia Record Part II Anesthesia Record Part II Discharge Time: 09:20 Destination: Obstetric PACU nurse assessment reviewed?: Yes Patient Condition:: Good Anesthesia Complications:: None Swallowing reflex intact?: Yes Cyanosis?: No Blood Pressure: 156/68 Pulse Rate: 100 Temperature: 97.4 F Mental Status: Alert & Oriented Pain level:: 0 Nausea and/or vomitting:: None Intake, IV Amount: 0
[2022-05-15 14:41] LABS: Microscopic,Cath URINE MICROSCOPIC (MICROSCOPIC)
[2022-05-15 14:44] LABS: Appearance,Urine/Cath CLEAR (Clear); Bilirubin,Cath Negative (Negative); Blood, Urine/Cath TRACE-L (Negative); Color,Urine/Cath YELLOW (Yellow); Glucose,Urine/Cath (UA) Negative (Negative); Ketones,Urine/Cath Negative (Negative); Leukocyte Esterase,Cath Negative (Negative); Nitrate,Cath Negative (Negative); PH,Urine/Cath 6.5 (5.0-8.5); Protein,Urine/Cath Negative (Negative); Urobilinogen,Cath 0.2 EU/dl (0.2)
[2022-05-15 15:05] LABS: RBC,Urine/Cath Occasional # /hpf (0-3); Squamous Epithelial Ur./Cath Occasional #/hpf (0-5); WBC,Urine/Cath Occasional #/hpf (0-3)
[2022-05-16] VITALS (22 sets, daily range): BP systolic 93–130; BP diastolic 51–72; PULSE 60–101; RESP 17–24; TEMP 36.4–36.9; O2SAT 98–100
[2022-05-16 06:44] LABS: Basophils % 0.2 % (0.1-2.0); Eosinophils % 0.3 % (0.1-12.0); Hematocrit 22.9 % (37.0-47.0); Lymphocytes # 2.5 K/mm3 (0.7-4.5); Lymphocytes % 18.9 % (10-50); Mean Corpuscular HGB Conc 30.4 g/dL (31.8-35.4); Mean Corpuscular Hemoglobin 25.1 pg (27.0-31.2); Mean Corpuscular Volume 82.6 fl (81-99); Mean Platelet Volume 10.2 fl (7.4-10.4); Monocytes # 0.7 K/mm3 (0.1-1.0); Monocytes % 5.1 % (1.7-9.3); Neutrophils # 9.9 K/mm3 (1.8-7.8); Neutrophils % 75.5 % (37.0-80.0); Platelet Count 219 K/mm3 (142-424); Red Blood Count 2.77 M/mm3 (4.20-5.40); Red Cell Distribution Width 15.4 % (11.5-17.5); White Blood Count 13.1 K/mm3 (4.8-10.8)
--- NOTE | 2022-05-16 09:51 | SW/DCPLANNER ---
Addendum entered by Parris Martinez 05/18/22 09:05: Infant cord screen is negative. Original Note: I have received a consult on this patient regarding positive urine screen on first visit. Patient tested positive for THC on 10/22/21: this was the only positive drug screen. Patient delivered infant male (Benjamin Pyle) on 05/15/2022. 's father (Jean Pyle 07/05/96) was present at the time of my visit. Patient, Jean, infant and other child (2 year old Muna) will reside at [address] [place] [address]. Patient's contact number is [phone]. Patient stated no past Social Service involvement. Patient is not interested in [facility] but is currently established with [facility]. Patient stated that she has the following items at home: crib, carseat, clothing, diapers and will be bottle feeding. Ped MD will be Dr Guallpa in [place]. Patient stated that she does have transportation for all follow up appointments. Patient is planned to discharge tomorrow 05/17/22. Patient's nurse (Donna) stated that patient is appropriate with . Patient stated that she does not have any further needs at this time.
--- NOTE | 2022-05-16 11:04 | ECG_ITS ---
APPROVED REPORT Exam: Resting ECG HR:69 bpm ECG Measurements Heart Rate 69 AXES FL 138 P 25 QRSd 90 QRS 10 QT 383 T 23 QTc 402 Conclusion SINUS RHYTHM WITH SINUS ARRHYTHMIA NORMAL ECG UNCONFIRMED REPORT Electronically signed by : Zia Nettles MD 05/19/2022 17:46:45
[2022-05-16 16:37] LABS: Hematocrit 27.7 % (37.0-47.0)
[2022-05-16 16:44] LABS: Hemoglobin 9.1 g/dL (12.2-16.2)
[2022-05-17 08:44] VITALS: BP 115/57; PULSE 94; RESP 16; TEMP 36.9; O2SAT 100
--- NOTE | 2022-05-17 09:45 | EXP.DC.SUM ---
General Admission date:: 05/15/22 Discharge date: 05/17/22 HPI HPI HPI: 21 yo @ 38 wks Dating by 10/16 ultrasound complicated by GDMA2 managed by oral hypoglycemics, macrosomia and polyhydramnios She declined ONUR and requested elective primary CS Hospital Course Hospital Course Hospital Course: Asymptomatic with acute intraoperative blood loss compounding chronic anemia Postop Hgb 7.0 and she was transfused 2 units packed red cells She is discharged home in stable condition on POD #2 She is tolerating a regular diet, ambulating and voiding without difficulty Pain control is sufficient and lochia is appropriate Exam Data for Last 24 hours Vital signs and Labs for Last 24 Hours: Temp Pulse Resp BP Pulse Ox 98.0 F 88 17 128/62 100 05/16/22 16:00 05/16/22 16:00 05/16/22 16:00 05/16/22 16:00 05/16/22 16:00 Laboratory Results - last 24 hr 05/15/22 05:40: Blood Type AB Positive, Antibody Screen Negative, Crossmatch (AHG) See Detail 05/16/22 16:10: Hgb 9.1 L D, Hct 27.7 L I & O for Last 24 hours: Intake & Output 05/14/22 05/15/22 05/16/22 05/17/22 11:59 11:59 11:59 11:59 Intake Total 1400 / 1400 0 / 0 250 / 250 Balance 1400 / 1400 0 / 0 250 / 250 Weight 224 lb Microbiology Reports for the Last 24 Hours: Microbiology 05/15/22 05:26 Urine,Clean Catch Urine Culture - Final NO GROWTH AFTER 48 HOURS Constitutional Constitutional: no acute distress *Routine HEENT Exam Head: Present normocephalic Eye: Absent conjunctival icterus or scleral injection ENT: Present mucous membranes moist *Routine Neck Exam Neck: Present supple *Routine Respiratory Exam Respiratory: Present CTA bilaterally *Routine Cardiovascular Exam Cardiovascular: Present RRR *Routine Abdominal Exam Abdominal: Present soft; Absent tenderness or distended *Routine Rectal Exam Patient deferred: visual exam and digital exam *Routine Exam Patient deferred: external exam Comments: Fundus firm below umbilicus *Routine Extremities Exam Extremities: Present edema *Routine Skin Exam Skin: Present intact and dry Comments: Incision intact without erythema or purulent drainage *Routine Neurological Exam Neurological: Present alert and oriented X3 Routine Psychiatric Exam Psychiatric: Present normal affect; Absent depressed Results Data Completed and Pending Labs on day of discharge: Labs from last 24 hours 05/16/22 05/15/22 16:10 05:40 Hgb 9.1 L D Hct 27.7 L Blood Type AB Positive Antibody Screen Negative Crossmatch (AHG) See Detail DS: Diagnosis Discharge Diagnosis (1) 38 weeks gestation of : Status: Acute (2) Gestational diabetes mellitus in , controlled by oral hypoglycemic drugs: Status: Acute (3) White classification A2 gestational diabetes mellitus (GDM): Status: Acute (4) LGA (large for gestational age) fetus affecting management of mother: Status: Acute (5) Polyhydramnios affecting : Status: Acute (6) Tobacco smoking affecting : Status: Acute (7) Obesity (BMI 35.0-39.9 without comorbidity): Status: Acute (8) Delivered by section: Status: Acute Meds Home Medications and Allergies Home Medications Medication Instructions Recorded Confirmed Type blood-glucose meter #1 ea 02/20/22 05/11/22 Rx glyburide 5 mg tablet 5 mg PO AM Diabetes 04/19/22 05/15/22 History ferrous sulfate 325 mg (65 mg 325 mg PO BID #60 tabs 05/17/22 Rx iron) tablet ibuprofen 400 mg tablet 800 mg PO Q6HP PRN Mild To 05/17/22 Rx Moderate Pain #40 tabs oxycodone 5 mg tablet 5 mg PO Q4HP PRN Moderate Pain #24 05/17/22 Rx tabs New Prescriptions to Start Prescriptions: ferrous sulfate Lisbet Ulloa ibuprofen Lisbet Ulloa oxycodone Lisbet Ulloa
== END 2022-05-17 10:45 | disposition home or self-care (01) | DRG 788 ==
PROVIDERS: Nurse Practitioner Obstetrics & Gynecology; Admitting Provider Obstetrics & Gynecology; PCP Emergency Medicine; Visit Provider Obstetrics & Gynecology
PROC: 10D00Z1 Extraction of Products of Conception, Low, Open Approach (ICD-10-PCS; CPT 59514; principal; 2022-05-15 07:30)
DX: O40.3XX0 Polyhydramnios, third trimester, not applicable or unspecified (principal); O24.415 Gestational diabetes mellitus in pregnancy, controlled by oral hypoglycemic drugs; O36.60X0 Maternal care for excessive fetal growth, unspecified trimester, not applicable or unspecified; Z3A.38 38 weeks gestation of pregnancy; Z37.0 Single live birth
CPT/HCPCS: 59514; 36415; 59025; 80048; 80305; 81001; 82962; 85014; 85018; 85025; 86850; 87086; 93005; 94761; C9290; C9803; G0283; J2405; P9016; U0003; U0005

== ENCOUNTER 2022-05-21 01:39 | Outpatient (CLI) | payer OTHER, SELFPAY ==
[2022-05-21 01:44] VITALS: BMI 38.4
[2022-05-21 01:45] VITALS: BP 140/90; PULSE 99; RESP 17; TEMP 36.8; O2SAT 99; BMI 38.2
--- NOTE | 2022-05-21 02:01 | PC.NURSE ---
Addendum entered by Gilma Garber RN 05/21/22 02:04: SCOT PARAMETERS: IF B/P UNDER 150/100 AND PI[facility] LABS OKAY, CAN SEND PT HOME AND TELL HER TO FOLLOW UP WITH DR HUTTON TOMORROW. Original Note: PT UP TO FLOOR AT 0148 WITH VIA W/C. PT C/O HIGH B/P, SWOLLEN LEGS AND MARTINEZ. MARTINEZ SEEMS TO BE GONE AT THE PRESENT TIME. MD ELLISON CALLED PRIOR TO PT ARRIVAL AND GAVE ORDERS FOR B/P AND [facility] LABS. UPON ASSESSMENT, PT HAS +2 PITTING EDEMA TO BLE, REFLEXES +2, CLONUS ABSENT. PT LYING IN BED AWAITING LAB AT THIS TIME. NO OTHER NEEDS OR C/O. HOOKED UP TO CONTINUOUS B/P AT THIS TIME.
[2022-05-21 02:19] VITALS: BP 129/82
--- NOTE | 2022-05-21 02:20 | PC.NURSE ---
LABS DRAWN BY THIS NURSE AT THIS TIME
[2022-05-21 02:25] LABS: Basophils # 0.1 K/mm3 (0-0.2); Basophils % 0.8 % (0.1-2.0); Eosinophils # 0.2 K/mm3 (0.0-0.4); Eosinophils % 1.9 % (0.1-12.0); Hemoglobin 8.9 g/dL (12.2-16.2); Lymphocytes # 3.4 K/mm3 (0.7-4.5); Lymphocytes % 27.2 % (10-50); Mean Corpuscular HGB Conc 32.4 g/dL (31.8-35.4); Mean Corpuscular Hemoglobin 27.6 pg (27.0-31.2); Mean Corpuscular Volume 85.2 fl (81-99); Mean Platelet Volume 9.5 fl (7.4-10.4); Monocytes # 0.6 K/mm3 (0.1-1.0); Monocytes % 4.6 % (1.7-9.3); Neutrophils # 8.3 K/mm3 (1.8-7.8); Neutrophils % 65.6 % (37.0-80.0); Platelet Count 280 K/mm3 (142-424); Red Blood Count 3.24 M/mm3 (4.20-5.40); Red Cell Distribution Width 18.2 % (11.5-17.5); White Blood Count 12.7 K/mm3 (4.8-10.8)
[2022-05-21 02:26] LABS: Hematocrit 27.6 % (37.0-47.0)
[2022-05-21 02:44] LABS: Activated Partial Thrombo Time 30.5 seconds (22.8-30.6); Anion Gap 10.6 mEq/L (5-15); Carbon Dioxide 25 mmol/L (22.0-30.0); Chloride 106 mmol/L (98-107); Fibrinogen 542 mg/dL (229.9-363.5); INR 0.85 (0.9-1.1); Potassium 3.6 mmoL/L (3.5-5.1); Prothrombin Time 9.3 seconds (10.1-12.5); Sodium 138 mmol/L (136-145)
[2022-05-21 02:45] LABS: Alanine Aminotransferase 47 U/L (12-78); Aspartate Amino Transferase 31 U/L (14-36); Blood Urea Nitrogen 17 mg/dl (7-17); Calcium 8.3 mg/dl (8.4-10.2); Creatinine Clearance Estimated 283 mL/min (50-200); Estimated Glomerular Filt Rate 154 ml/min (>60); GFR (African American) 187 ML/MIN (>60); Glucose 97 mg/dl (74-100); Uric Acid 4.7 mg/dl (2.5-6.2)
[2022-05-21 02:54] VITALS: BP 121/78
--- NOTE | 2022-05-21 03:00 | PC.NURSE ---
PT B/P IN NORMAL RANGE AT THIS TIME. NO C/O MARTINEZ, BLURRED VISION, EPIGASTRIC PAIN. PT STATES SHE FEELS MUCH BETTER LAYING DOWN WITH FEET ELEVATED. D/C INSTRUCTIONS GIVEN TO PT, TOLD TO CALL [facility] FOR AN APPOINTMENT TOMORROW. PT V/U.
--- NOTE | 2022-05-21 03:09 | PC.NURSE ---
PT LEFT FLOOR WITH VIA W/C AT 0308
== END 2022-05-21 03:08 | disposition home or self-care (01) ==
LOC: OBOUT 01:41 → OB 01:42
PROVIDERS: PCP Emergency Medicine; Visit Provider Obstetrics & Gynecology
DX: Z39.2 Encounter for routine postpartum follow-up (principal); I10 Essential (primary) hypertension; R60.0 Localized edema
CPT/HCPCS: 80048; 84450; 84460; 84550; 85025; 85378; 85384; 85610; 85730; G0463

== ENCOUNTER 2022-07-26 16:11 | Emergency (ER) | payer OTHER, SELFPAY ==
[2022-07-26 17:20] VITALS: BP 135/72; PULSE 70; RESP 19; TEMP 36.9; O2SAT 98; BMI 32.4
--- NOTE | 2022-07-26 17:26 | EXP.UTC ---
Discharge Plan Disposition Patient Disposition: Home, Self-Care Condition: Good Prescriptions Prescriptions: New phenazopyridine [Pyridium] 200 mg tablet 200 mg PO Q8H 2 Days Qty: 6 0RF ondansetron 4 mg Tablet,Disintegrating 4 mg PO Q8H PRN (Reason: Nausea) Qty: 12 0RF sulfamethoxazole-trimethoprim [Bactrim DS] 800-160 mg Tablet 1 tab PO BID Qty: 14 0RF No Action sertraline [Zoloft] 50 mg tablet 50 mg PO DAILY Qty: 30 5RF Referrals Follow up/Referrals: Chapo Spencer MD [Primary Care Provider] - See instructions Activity Restrictions/Add. Instructions Additional Instructions/Restrictions: Drink plenty of fluids. Take tylenol or ibuprofen for pain or fever. Take the medications as directed. Follow up with your regular doctor. GO TO THE ER FOR ANY WORSENING SYMPTOMS The pyridium will make your urine turn orange, this is an expected side effect. It will stain your clothes if it comes into contact with them. We will culture the urine. That will tell what bacteria is causing your infection and which antibiotics will treat it best. Sometimes the first antibiotic we prescribe turns out to not work against different bacteria. So, make sure you follow up within 3 days if you are not getting better. Clinical Impressions Clinical Impression: UTI (urinary tract infection) Instructions Patient Instructions: DI for Urinary Tract Infection (UTI), Phenazopyridine Discharge ED Provider: Quinton Bledsoe [facility] General Stated complaint: poss uti Time Seen by Provider: 07/26/22 17:26 History of Present Illness Provider Complaint: She states that for the past 2 days she has had worsening urinary frequency, dysuria, and low back pain. Related Data Previous Rx's Medication Instructions Recorded sertraline 50 mg tablet (Zoloft) 50 mg PO DAILY #30 tabs 06/14/22 ondansetron 4 mg disintegrating 4 mg PO Q8H PRN Nausea #12 tabs 07/26/22 tablet phenazopyridine 200 mg tablet 200 mg PO Q8H 2 days #6 tabs 07/26/22 (Pyridium) sulfamethoxazole 800 1 tab PO BID #14 tabs 07/26/22 mg-trimethoprim 160 mg tablet (Bactrim DS) Allergies Allergy/AdvReac Type Severity Reaction Status Date / Time No Known Allergies Allergy Verified 07/02/22 15:18 [facility] Disclaimer: The information contained in this section may have been updated after the patient was seen, as this information can be updated by other users. Medical History Anxiety Depression Gestational diabetes Migraine New onset seizure depression Surgical History History of section Family History Other No significant family history Social History Smoking Status: Former smoker second hand exposure: No alcohol intake: never substance use type: denies use current occupational status: employed Travel in the last 8 weeks: None adopted: No caregiver/support person: Yes foster care: No household members: spouse, family and children housing: house lives independently: Yes marital status: number of children: 1 education level: other service: No skilled nursing: No current occupational exposures/hazards: No sexually active: Yes diet: diabetic physical activity: none ROS Obtained: Yes All systems reviewed & no additional complaints except as documented Constitutional Constitutional: Reports system reviewed and no additional complaints, except as documented, Denies chills and Denies fever(s) Eyes Eyes: Denies eye discharge ENT Ears, Nose, Mouth, and Throat: Denies dysphagia, Denies sore throat and Denies throat swelling Cardiovascular Cardiovascular: Denies chest pain and Denies dyspnea Respiratory Respiratory: Denies chest congestio
[2022-07-26 17:34] LABS: Apearance,Urine Cloudy (Clear); Blood, Urine 3+ (Negative); Color,Urine Red (Yellow); Glucose,Urine (UA) 100 (Negative); Ketones,Urine TRACE (Negative); Protein,Urine 1+ (Negative)
[2022-07-26 17:35] LABS: Bilirubin,Urine Negative (Negative); UTC Leukocyte Esterase,Urine 2+ (Negative); UTC Nitrate,Urine Positive (Negative); Urobilinogen,Urine 1 EU/dl (0.2)
[2022-07-26 17:51] VITALS: BP 135/72; PULSE 70; RESP 19; TEMP 36.9; O2SAT 98
== END 2022-07-26 18:00 | disposition home or self-care (01) ==
PROVIDERS: Emergency Provider Nurse Practitioner Family; PCP Emergency Medicine
DX: N39.0 Urinary tract infection, site not specified (principal)
CPT/HCPCS: 81003; 87086; 87088; 87186; 99212; G0463

== ENCOUNTER 2022-10-21 19:59 | Emergency (ER) | payer OTHER, SELFPAY ==
[2022-10-21 20:02] VITALS: BP 139/77; PULSE 87; RESP 20; TEMP 36.6; O2SAT 97; BMI 36.0
[2022-10-21 20:20] VITALS: BP 139/77; PULSE 74; RESP 20; O2SAT 98
--- NOTE | 2022-10-21 20:21 | XR_ITS ---
PROCEDURE INFORMATION: Exam: XR Left Foot Exam date and time: 10/21/2022 8:20 PM Age: 22 years old Clinical indication: Patient HX: Patient woke up with left foot pain, no known injury. TECHNIQUE: Imaging protocol: Radiologic exam of the left foot. Views: 3 or more views. COMPARISON: No relevant prior studies available. FINDINGS: Bones/joints: Normal. Soft tissues: Normal. IMPRESSION: No acute findings.
--- NOTE | 2022-10-21 20:27 | PC.NURSE ---
Patient out of room to XRay at this time.
--- NOTE | 2022-10-21 20:54 | PC.NURSE ---
[place] on patient, no needs voiced at this time.
--- NOTE | 2022-10-21 21:21 | HMH.EDLOEX ---
Discharge Plan Disposition Patient Disposition: Home, Self-Care Prescriptions Prescriptions: New azithromycin [azithromycin] 250 mg tablet 250 mg PO DIRECTED Qty: 6 0RF Rx Instructions: Take two (2) tablets on day #1, then one (1) tablet day #2 thru #5 prednisone [prednisone] 20 mg tablet 20 mg PO BID Qty: 10 0RF No Action Mirena 20 mcg/24 hours (8 yrs) 52 mg intrauterine device 1 device intrauterine ONCE Referrals Follow up/Referrals: Chapo Spencer MD [Primary Care Provider] - See instructions Ifeoma James DPM [Staff Physician] - See instructions Clinical Impressions Clinical Impression: Plantar fasciitis of left foot, Bronchitis Instructions Patient Instructions: DI for Plantar Fasciitis Discharge ED Provider: Tj (ED)Chapo Lower Extremity Injury HPI General Chief Complaint: Extremity Injury, Lower Stated Complaint: pain L foot,cough,congestion Time Seen by Provider: 10/21/22 21:21 Mode of Arrival: Ambulatory Source of Information: Patient, Significant Other and Medical Record Limitations: No Limitations Description of Symptoms (Recalled from ER Triage Doc. by RN): Pt present with left foot pain that started today when she woke up. Denies any injury. Also states she has had congestion for 2 days with dry cough and sore throat. Denies any N/V/D or fever at this time. History of Present Illness HPI Narrative: uri sx and cough with sore throat - no injury but has lt foot pain forest with wt bearing - no tob use - neg preg MD complaint: other (foot pain) Onset (ago): day(s) Injury: Left: foot Type of Injury: unknown Place: home Severity: moderate Exacerbating factors: weight bearing Related Data Home Medications Medication Instructions Recorded Confirmed levonorgestrel 21 mcg/24 hours (8 1 device intrauterine ONCE 08/20/22 10/21/22 yrs) 52 mg intrauterine device control (Mirena) Previous Rx's Medication Instructions Recorded azithromycin 250 mg tablet 250 mg PO DIRECTED #6 tabs 10/21/22 prednisone 20 mg tablet 20 mg PO BID #10 tabs 10/21/22 Allergies Allergy/AdvReac Type Severity Reaction Status Date / Time No Known Allergies Allergy Verified 08/20/22 13:06 [facility] Disclaimer: The information contained in this section may have been updated after the patient was seen, as this information can be updated by other users. Medical History Anxiety Depression Gestational diabetes Migraine New onset seizure depression Surgical History History of section Family History Other No significant family history Social History Smoking Status: Never smoker second hand exposure: No alcohol intake: never substance use type: denies use current occupational status: employed Travel in the last 8 weeks: None adopted: No caregiver/support person: Yes foster care: No household members: spouse, family and children housing: house lives independently: Yes marital status: number of children: 1 education level: other service: No usp: No current occupational exposures/hazards: No sexually active: Yes diet: diabetic physical activity: none ROS Obtained: Yes All systems reviewed & no additional complaints except as documented Physical Exam General General appearance: alert Head Head exam: normocephalic Eye Eye exam: Present PERRL and EOMI ENT ENT exam: Present normal oropharynx and mucous membranes moist Neck Neck exam: Present full ROM and trachea midline Respiratory Respiratory exam: Present normal lung sounds bilaterally; Absent respiratory distress Cardiovascular Cardiovascular exam: Present regular rate Expanded Lower Extremity Exam
[2022-10-21 21:39] VITALS: BP 140/68; PULSE 74; RESP 18; TEMP 36.6
== END 2022-10-21 21:47 | disposition home or self-care (01) ==
PROVIDERS: Emergency Provider Emergency Medicine; PCP Emergency Medicine
DX: M72.2 Plantar fascial fibromatosis (principal); J20.9 Acute bronchitis, unspecified
CPT/HCPCS: 73630; 99283; 99284

== ENCOUNTER → 2022-11-14 14:55 | Outpatient (CLI) | payer OTHER, SELFPAY ==
--- NOTE | 2022-11-14 15:00 | XR_ITS ---
FINAL REPORT CLINICAL HISTORY: cyst type area proximal 4th finger. FINDINGS: LEFT HAND Three views demonstrate no acute fracture. There is no dislocation. The visualized joint spaces are normally aligned. The joint spaces are preserved. The soft tissues are unremarkable. IMPRESSION: No acute bony abnormality. No radiopaque foreign body is identified. Reviewed, Interpreted and Dictated by Ortega Painter MD Transcribed by Linsey Black Authenticated and [facility]
[2022-11-14 16:57] LABS: Basophils % 0.6 % (0.1-2.0); Eosinophils # 0.1 K/mm3 (0.0-0.4); Eosinophils % 1.4 % (0.1-12.0); Hematocrit 42.3 % (37.0-47.0); Hemoglobin 13.1 g/dL (12.2-16.2); Lymphocytes # 2.2 K/mm3 (0.7-4.5); Lymphocytes % 32.7 % (10-50); Mean Corpuscular HGB Conc 31.1 g/dL (31.8-35.4); Mean Corpuscular Hemoglobin 26.5 pg (27.0-31.2); Mean Corpuscular Volume 85.4 fl (81-99); Monocytes # 0.3 K/mm3 (0.1-1.0); Monocytes % 4.3 % (1.7-9.3); Neutrophils # 4.1 K/mm3 (1.8-7.8); Platelet Count 261 K/mm3 (142-424); Red Blood Count 4.96 M/mm3 (4.20-5.40); White Blood Count 6.8 K/mm3 (4.8-10.8)
[2022-11-14 18:51] LABS: Erythrocyte Sedimentation Rate 12 mm/hr (0-20)
[2022-11-14 19:00] LABS: Alanine Aminotransferase 17 U/L (12-78); Albumin Level 4.4 g/dl (3.5-5.0); Albumin/Globulin Ratio 1.9 (1.1-1.8); Alkaline Phosphatase 64 U/L (38-126); Anion Gap 10.7 mEq/L (5-15); Aspartate Amino Transferase 21 U/L (14-36); Bilirubin,Total 0.4 mg/dl (0.2-1.3); Blood Urea Nitrogen 15 mg/dl (7-17); Calcium 8.8 mg/dl (8.4-10.2); Carbon Dioxide 26 mmol/L (22.0-30.0); Chloride 106 mmol/L (98-107); Estimated Glomerular Filt Rate 124 ml/min (>60); GFR (African American) 150 ML/MIN (>60); Globulin 2.3 g/dL (1.3-3.2); Glucose 84 mg/dl (74-100); Potassium 4.7 mmoL/L (3.5-5.1); Sodium 138 mmol/L (136-145); Total Protein,Serum 6.7 g/dl (6.3-8.2)
[2022-11-14 19:07] LABS: C-Reactive Protein 4.1 mg/L (0-4)
[2022-11-14 19:19] LABS: Free Thyroxine Index 2.7 ug/dL (5.93-13.13); T4 (Thyroxine) 7.7 ug/dl (5.53-11.0); Triiodothryronine (T3) Uptake 35 % (23.5-40.5)
[2022-11-14 19:33] LABS: Thyroid Stimulating Hormone 0.68 uIU/mL (0.465-4.68)
[2022-11-23 19:54] LABS: 1,25 Dihydroxy Vitamin D 36 pg/mL (.); 1,25-Dihydroxy, Vitamin D-2 <10 pg/mL (.); 1,25-Dihydroxy, Vitamin D-3 32 pg/mL (.)
== END ==
PROVIDERS: Nurse Practitioner Family; PCP Emergency Medicine; Visit Provider Emergency Medicine
DX: Q79.9 Congenital malformation of musculoskeletal system, unspecified (principal); E66.9 Obesity, unspecified; Z68.35 Body mass index [BMI] 35.0-35.9, adult; M79.645 Pain in left finger(s)
CPT/HCPCS: 73130; 80053; 82652; 84436; 84443; 84479; 85025; 85651; 86140

== ENCOUNTER 2022-12-03 16:36 | Emergency (ER) | payer OTHER, SELFPAY ==
[2022-12-03 17:00] VITALS: BP 115/85; PULSE 80; RESP 18; TEMP 37; O2SAT 97; BMI 34.1
--- NOTE | 2022-12-03 17:22 | EXP.UTC ---
Discharge Plan Disposition Patient Disposition: Home, Self-Care Condition: Good Prescriptions Prescriptions: New cefdinir 300 mg capsule 300 mg PO BID Qty: 20 0RF fluticasone propionate [Flonase Allergy Relief] 50 mcg/actuation spray,suspension 1 - 2 spray intranasal DAILY Qty: 16 0RF Rx Instructions: administer into each nostril methylprednisolone [Medrol (Chaz)] 4 mg tablets,dose pack See Rx Instructions .Route .COMPLEX 6 Days Qty: 21 0RF Rx Instructions: taper pack; No Action Mirena 20 mcg/24 hours (8 yrs) 52 mg intrauterine device 1 device intrauterine ONCE Referrals Follow up/Referrals: Chapo Spencer MD [Primary Care Provider] - See instructions Activity Restrictions/Add. Instructions Additional Instructions/Restrictions: *Monitor Temp, Over the counter Motrin or Tylenol as directed/as needed Tylenol every 4 hours and Motrin every 6 hours (as long as your family doctor has told you that you can take it) for fever or pain. and straight to ER if unable to lower temp less than 101.0 after medication given *Warm salt water gargles may help to soothe the throat *Throat Lozenges? *Warm fluids like tea with honey may help to soothe the throat? *Sleep elevated *Humidifier/Vaporizer *Flonase 2 sprays in each nostril daily but be aware that it may take 2-3 days before you notice improvement Follow up IMMEDIATELY for new or worsening symptoms or no Noticeable improvement over the next 48-72 hours. 911 for difficulty breathing or swallowing Clinical Impressions Clinical Impression: Otitis media Instructions Patient Instructions: Middle Ear Infection, Cefdinir Discharge ED Provider: Olga Feliciano [facility] [place] HPI General Stated complaint: congestion, cough, fever, runny nose Time Seen by Provider: 12/03/22 17:22 History of Present Illness Provider Complaint: Patient states that she has been having pain in her right ear, sinus congestion with drainage, cough and runny nose for several days States that there is other members in the house with similar symptoms Related Data Home Medications Medication Instructions Recorded Confirmed levonorgestrel 21 mcg/24 hours (8 1 device intrauterine ONCE 08/20/22 12/03/22 yrs) 52 mg intrauterine device control (Mirena) Previous Rx's Medication Instructions Recorded cefdinir 300 mg capsule 300 mg PO BID #20 caps 12/03/22 fluticasone propionate 50 1 - 2 spray intranasal DAILY #16 12/03/22 mcg/actuation nasal grams spray,suspension (Flonase Allergy Relief) methylprednisolone 4 mg tablets in See Rx Instructions .Route 12/03/22 a dose pack (Medrol (Chaz)) .COMPLEX 6 days #21 tabs Allergies Allergy/AdvReac Type Severity Reaction Status Date / Time No Known Allergies Allergy Verified 12/03/22 17:26 [facility] Disclaimer: The information contained in this section may have been updated after the patient was seen, as this information can be updated by other users. Medical History Anxiety Depression Gestational diabetes Migraine New onset seizure depression Surgical History History of section Family History Other No significant family history Social History Smoking Status: Never smoker second hand exposure: No alcohol intake: never substance use type: denies use current occupational status: employed Travel in the last 8 weeks: None adopted: No caregiver/support person: Yes foster care: No household members: spouse, family and children housing: house lives independently: Yes marital status: number of children: 1 education level: other service: No senior care: No current occupational exposure
[2022-12-03 18:06] VITALS: BP 115/85; PULSE 80; RESP 18; TEMP 37; O2SAT 97
== END 2022-12-03 18:06 | disposition home or self-care (01) ==
PROVIDERS: Emergency Provider Nurse Practitioner; PCP Emergency Medicine
DX: H66.91 Otitis media, unspecified, right ear (principal); R05.9 Cough, unspecified; R09.81 Nasal congestion
CPT/HCPCS: 99212; 99214; G0463

== ENCOUNTER 2023-05-02 18:24 | Emergency (ER) | payer OTHER, SELFPAY ==
[2023-05-02 19:34] VITALS: BP 135/75; PULSE 70; RESP 16; TEMP 36.9; O2SAT 98; BMI 35.9
[2023-05-02 19:43] LABS: Coronavirus 19, PCR Not Detected (NotDetected); Influenza A, PCR Not Detected (NotDetected); Influenza B, PCR Not Detected (NotDetected)
[2023-05-02 19:59] LABS: Strep Scrn Group A (Rapid) Negative (Negative)
--- NOTE | 2023-05-02 20:09 | HMH.EDGENADL ---
Discharge Plan Disposition Patient Disposition: Home, Self-Care Prescriptions Prescriptions: New yjxgobjhwqqbxzk-rvbazdaph-AH [Bromfed DM] 2-30-10 mg/5 mL syrup 5 ml PO Q6H PRN (Reason: cold symptoms) Qty: 118 0RF No Action Mirena 20 mcg/24 hours (8 yrs) 52 mg intrauterine device 1 device intrauterine ONCE cefdinir 300 mg capsule 300 mg PO BID Qty: 20 0RF fluticasone propionate [Flonase Allergy Relief] 50 mcg/actuation spray,suspension 1 - 2 spray intranasal DAILY Qty: 16 0RF Rx Instructions: administer into each nostril methylprednisolone [Medrol (Chaz)] 4 mg tablets,dose pack See Rx Instructions .Route .COMPLEX 6 Days Qty: 21 0RF Rx Instructions: taper pack; Referrals Follow up/Referrals: Chaop Spencer MD [Primary Care Provider] - See instructions Activity Restrictions/Add. Instructions Additional Instructions/Restrictions: At this time it was felt you are safe to be discharged home. If new or worsening symptoms please do not hesitate to return the emergency department. If symptoms persist please follow-up with your family doctor as you are able. Please take your medication as prescribed. Clinical Impressions Clinical Impression: Acute viral syndrome Discharge ED Provider: Reji Cochran General Adult HPI General Chief complaint: Upper Respiratory Infection Stated complaint: Sore throat,runny nose Time Seen by Provider: 05/02/23 19:15 Mode of Arrival: Ambulatory Source of Information: Patient Limitations: No Limitations Description of Symptoms (Recalled from ER Triage Doc. by RN): pt c/o a sore throa, dry cough, fever, body aches, loss of appetite and fatigue x3d. pt states she has not been around anyone sick. History of Present Illness HPI narrative: Patient presents to the emergency department for evaluation of sore throat, dry cough, intermittent fever, body aches and fatigue for 3 to 5 days. Adequate p.o. intake and urine output. No other acute complaints at this time. Related Data Home Medications Medication Instructions Recorded Confirmed levonorgestrel 21 mcg/24 hours (8 1 device intrauterine ONCE 08/20/22 12/03/22 yrs) 52 mg intrauterine device control (Mirena) Previous Rx's Medication Instructions Recorded cefdinir 300 mg capsule 300 mg PO BID #20 caps 12/03/22 fluticasone propionate 50 1 - 2 spray intranasal DAILY #16 12/03/22 mcg/actuation nasal grams spray,suspension (Flonase Allergy Relief) methylprednisolone 4 mg tablets in See Rx Instructions .Route 12/03/22 a dose pack (Medrol (Chaz)) .COMPLEX 6 days #21 tabs oeqsyreevcwumtc-uujbwvscffkknuo-BF 5 ml PO Q6H PRN cold symptoms #118 05/02/23 2 mg-30 mg-10 mg/5 mL oral syrup mL (Bromfed DM) Allergies Allergy/AdvReac Type Severity Reaction Status Date / Time No Known Allergies Allergy Verified 12/03/22 17:26 [facility] Disclaimer: The information contained in this section may have been updated after the patient was seen, as this information can be updated by other users. Medical History Anxiety Depression Gestational diabetes Migraine New onset seizure depression Surgical History History of section Family History Other No significant family history Social History Smoking Status: Light tobacco smoker tobacco type: cigarettes packs per day: 1 second hand exposure: No alcohol intake: never substance use type: denies use current occupational status: employed Travel in the last 8 weeks: None adopted: No caregiver/support person: Yes foster care: No household members: spouse, family and children housing: house lives independently: Yes marital status: number of children: 1 education
[2023-05-02 21:23] VITALS: BP 132/70; PULSE 72; RESP 18; TEMP 37; O2SAT 98
== END 2023-05-02 21:24 | disposition home or self-care (01) ==
PROVIDERS: Emergency Provider Emergency Medicine; PCP Emergency Medicine
DX: J02.9 Acute pharyngitis, unspecified (principal); R50.9 Fever, unspecified; R05.9 Cough, unspecified; F41.9 Anxiety disorder, unspecified; F32.A Depression, unspecified; G43.909 Migraine, unspecified, not intractable, without status migrainosus; F17.210 Nicotine dependence, cigarettes, uncomplicated
CPT/HCPCS: 87430; 87636; 99283

== ENCOUNTER 2024-03-30 16:06 | Emergency (ER) | payer OTHER, SELFPAY ==
[2024-03-30 17:15] VITALS: BP 118/74; PULSE 74; RESP 19; TEMP 37; O2SAT 99; BMI 34.9
--- NOTE | 2024-03-30 17:15 | ED_ITS ---
Discharge Plan Disposition Patient Disposition: Home, Self-Care Condition: Good Prescriptions Prescriptions: New amoxicillin 875 mg tablet 875 mg PO Q12H Qty: 20 0RF iqakottmtenirgu-hmhdirecr-RO [Bromfed DM] 2-30-10 mg/5 mL Syrup 5 ml PO Q6H PRN (Reason: Cough) Qty: 240 0RF No Action Mirena 20 mcg/24 hours (8 yrs) 52 mg intrauterine device 1 device intrauterine ONCE Referrals Follow up/Referrals: Dannielle Ji APRN [Primary Care Provider] - See instructions Activity Restrictions/Add. Instructions Additional Instructions/Restrictions: Drink plenty of fluids. Take tylenol or ibuprofen for pain or fever. Take the medications as directed. Follow up with your regular doctor. GO TO THE ER FOR ANY WORSENING SYMPTOMS Clinical Impressions Clinical Impression: Strep throat Instructions Patient Instructions: Strep Throat, DI for Strep Throat Print Language Print Language: Tajik Discharge ED Provider: Quinton Bledsoe [facility] [place] HPI General Stated complaint: SOA,runny nose,sore throat,earache Time Seen by Provider: 03/30/24 17:15 Related Data Home Medications ?Medication ?Instructions ?Recorded ?Confirmed levonorgestrel 21 mcg/24 hr (up to 1 device intrauterine ONCE 08/20/22 03/30/24 8 years) 52 mg intrauterine device control (Mirena) Previous Rx's ?Medication ?Instructions ?Recorded amoxicillin 875 mg tablet 875 mg PO Q12H #20 tabs 03/30/24 iauuahmwdspumry-tuvbmgsmefmdilv-AK 5 ml PO Q6H PRN Cough #240 mL 03/30/24 2 mg-30 mg-10 mg/5 mL oral syrup (Bromfed DM) Allergies Allergy/AdvReac Type Severity Reaction Status Date / Time No Known Allergies Allergy Verified 02/20/24 15:08 [facility] Disclaimer: The information contained in this section may have been updated after the patient was seen, as this information can be updated by other users. Medical History (Updated 03/30/24 @ 17:53 by Quinton Bledsoe APRN) EIC (epidermal inclusion cyst) Acute viral syndrome Otitis media Bony abnormality Cyst of finger Bronchitis Plantar fasciitis of left foot IUD check up UTI (urinary tract infection) Depression Anxiety Migraine Encounter for insertion of mirena IUD depression Grief reaction Gestational diabetes New onset seizure Surgical History History of section Family History Other No significant family history Social History Smoking Status: Light tobacco smoker tobacco type: cigarettes packs per day: 1 second hand exposure: No alcohol intake: never substance use type: denies use current occupational status: employed Travel in the last 8 weeks: None adopted: No caregiver/support person: Yes foster care: No household members: spouse, family and children housing: house lives independently: Yes marital status: number of children: 1 education level: other service: No jail: No current occupational exposures/hazards: No sexually active: Yes diet: diabetic physical activity: none ROS Obtained: Yes All systems reviewed & no additional complaints except as documented Constitutional Constitutional: Reports chills and Reports fever(s) Eyes Eyes: Denies eye discharge ENT Ears, Nose, Mouth, and Throat: Reports as per HPI Cardiovascular Cardiovascular: Denies chest pain Respiratory Respiratory: Denies chest congestion and Reports cough Gastrointestinal Gastrointestingal: Reports nausea; Denies abdominal pain, constipation, cramping, diarrhea or vomiting Musculoskeletal Musculoskeletal: Denies arthralgias Integumentary/Breasts Skin/Breast: Denies rash Neurologic Neurologic: Denies paresthesias Physical Exam General General appearance: alert and in no apparent distress Head Head exam: atraumatic, normocephalic and normal inspection Eye Eye exam: Present normal appearance, PERRL and EOMI ENT ENT exam: Present mucous membranes moist and normal external ear exam Expanded ENT Exam TM/Canal exam: Bilateral TM: erythema and bulging Nose exam: Absent sinus tenderness Mouth exam: Present normal external inspection; Absent drooling Teeth exam: Present normal inspection Throat exam: Present tonsillar erythema, tonsillomegaly and tonsillar exudate Neck Neck exam: Present normal inspection, full ROM and trachea midline; Absent tenderness, meningismus or lymphadenopathy Chest Chest inspection: Present normal inspection and symmetric chest wall rise; Absent tenderness Respiratory Respiratory exam: Present normal lung sounds bilaterally; Absent respiratory distress, wheezes, stridor or accessory muscle use Cardiovascular Cardiovascular exam: Present regular rate and normal rhythm; Absent systolic murmur or diastolic murmur Abdominal Exam Abdominal exam: Present soft and normal bowel sounds; Absent distention, tenderness, guarding, rebound or rigidity Extremities Exam Extremities exam: Present normal inspection and normal capillary refill; Absent calf tenderness Back Exam Back exam: Present normal inspection and full ROM; Absent tenderness, CVA tenderness (R) or CVA tenderness (L) Neurological Exam Neurological exam: Present alert, oriented X3 and CN II-XII intact Psychiatric Psychiatric exam: Present normal affect and normal mood Skin Skin exam: Present warm, dry, intact and normal color Medical Decision Making Medical Records Medical records reviewed: No I reviewed the patient's medical records. Travis Inquiry Pt receiving controlled substance: No Lab Data Lab results reviewed: Yes I reviewed the patient's lab results. Orders (Tests/Meds): ORDERS Category Date Time Status Covid-19 Nasal PCR (H) Routine Lab 03/30/24 17:05 Ordered
[2024-03-30 17:36] LABS: UTC Strep Screen (Rapid) Positive (Negative)
[2024-03-30 17:57] VITALS: BP 118/74; PULSE 74; RESP 19; TEMP 37; O2SAT 99
== END 2024-03-30 18:03 | disposition home or self-care (01) ==
PROVIDERS: Emergency Provider Nurse Practitioner Family; PCP Family Medicine
DX: U07.1 COVID-19; J02.0 Streptococcal pharyngitis; R06.02 Shortness of breath; H92.03 Otalgia, bilateral
CPT/HCPCS: 87635; 87880; 99212; 99214; G0463

== ENCOUNTER 2024-04-08 08:46 | Day surgery (SDC) | payer OTHER, SELFPAY ==
[2024-04-08] VITALS (10 sets, daily range): BP systolic 111–148; BP diastolic 72–103; PULSE 52–82; RESP 16–18; TEMP 35.8–36.6; O2SAT 92–99; BMI 35.6
[2024-04-08 09:08] LABS: Urine Pregnancy, HCG Qual. Negative (Negative)
--- NOTE | 2024-04-08 09:38 | P.PNANES_ITS ---
[facility] Disclaimer: The information contained in this section may have been updated after the patient was seen, as this information can be updated by other users. Medical History EIC (epidermal inclusion cyst) Acute viral syndrome Otitis media Bony abnormality Cyst of finger Bronchitis Plantar fasciitis of left foot IUD check up UTI (urinary tract infection) Depression Anxiety Migraine Encounter for insertion of mirena IUD depression Grief reaction Gestational diabetes New onset seizure Surgical History (Updated 04/08/24 @ 09:06 by Gi Pretty RN) History of myringotomy History of adenoidectomy History of tonsillectomy History of section Family History Other No significant family history Social History Smoking Status: Light tobacco smoker tobacco type: cigarettes packs per day: 1 second hand exposure: No alcohol intake: never substance use type: denies use current occupational status: employed Travel in the last 8 weeks: None adopted: No caregiver/support person: Yes foster care: No household members: spouse, family and children housing: house lives independently: Yes marital status: number of children: 1 education level: other service: No fpc: No current occupational exposures/hazards: No sexually active: Yes diet: diabetic physical activity: none [facility] Anesthesia Checklist Patient Identification Patient Identification: Arm Band Structural Data Admitted From: Home Planned Operative Procedure/s: Excision of Left Ear Canal Epidermal Inclusion Cyst Consent for Planned Operative Procedure(s) Verified: Yes Verified Documents: Surgical Consent and History and Physical NPO Status Verified Time NPO: 08:45 (water) Additional verifications Anesthesia Reactions: No Hx Blood Transfusions: No Airway Assessment Mallampati Score:: Class II C-Spine Mobility Assessed: Yes TMJ Mobility Assessed: Yes Dentition: Good Dentition Neurological Assessment Level of Consciousness: Awake, Alert and Appropriate Anesthesia Plan Anesthesia Risk discussed: Yes Anesthesia Plan: Verified ASA Class: II Anesthesia Type: General
[2024-04-08] MEDS: LACTATED RINGERS 1000ML 1,000 ML 25 ML IV (10:12)
[2024-04-08] MEDS: CEFAZOLIN SODIUM 1 GM in 0.9 % SODIUM CHLORIDE 50 ML IV (12:00)
[2024-04-08] MEDS: LIDOCAINE 1% W/EPI 1:100,000 20ML VIAL 20 ML (12:13)
[2024-04-08] MEDS: MUPIROCIN 2% OINTMENT 22GM TUBE 22 GM TP (12:16)
--- NOTE | 2024-04-08 12:38 | P.OP_ITS ---
Date of procedure: 04/08/24 Pre-op Diagnosis:: Infected epidermal inclusion cyst left ear canal Post-op Diagnosis:: Infected epidermal inclusion cyst left ear canal Procedure performed:: Excision of epidermal inclusion cyst of left ear canal Surgeon:: Charlie Wright MD MANAGER COSMETIC:: Pina Prakash Anesthesia: GETA Estimated blood loss (mL): 0 Operative findings:: Small multiloculated cystic area of the skin of the inferior portion of the nora and left ear canal Operative note:: The patient was brought to the operating room and after adequate general anesthesia the left ear was prepped and draped in the usual sterile fashion and 1% lidocaine with epinephrine used to locally infiltrate the nora and ear canal entrance. Using operating microscope the skin was examined and elliptical excision of the complex cystic lesion was performed using scalpel and iris scissors and dissection was performed down to the subcutaneous fat. The specimen was sent for permanent section analysis. The subsequent wound defect was 1.1 cm. Closure was accomplished in simple interrupted fashion with 5-0 nylon and a sterile dressing placed. All counts correct and blood loss was minimal Condition: stable Disposition: PACU Complications:: No complications
--- NOTE | 2024-04-08 12:43 | EXP.ANES.I ---
[facility] Anesthesia Record Part I Anesthesia Record I Intake, IV Amount: 400 Hydration: Adequate Estimated blood loss (mL): 5 Urine output (mL): 0 Blood Products used (#): none Blood Pressure: 111/75 SaO2: 92 Pulse Rate: 52 Airway Patency: Patent Respiratory Rate: 16 Temperature: 96.4 F Patient is:: Drowsy, Oral/Nasal airway (10.0 oral airway upon arrival to PACU. removed @12:41.) and Stable Stable to PACU at:: 12:42
--- NOTE | 2024-04-08 15:06 | P.PNANES_ITS ---
[facility] Anesthesia Record Part II Anesthesia Record Part II Discharge Time: 13:00 Destination: Surgical Day Care (OP Surgery) PACU nurse assessment reviewed?: Yes Patient Condition:: Good Anesthesia Complications:: None Swallowing reflex intact?: Yes Airway Patency: Patent Cyanosis?: No Blood Pressure: 142/103 SaO2: 99 Respiratory Rate: 18 Pulse Rate: 73 Temperature: 96.4 F Mental Status: Alert & Oriented Pain level:: 0 Nausea and/or vomitting:: None Intake, IV Amount: 400 Hydration: Adequate
== END 2024-04-08 13:40 | disposition home or self-care (01) ==
PROVIDERS: PCP Family Medicine; Visit Provider Otolaryngology
PROC: (CPT 69145; principal; 2024-04-08 10:00)
DX: D23.22 Other benign neoplasm of skin of left ear and external auricular canal (principal)
CPT/HCPCS: 69145; 81025; 96374; J1100; J2250; J2405; J3010; J7120

== ENCOUNTER 2024-06-05 12:11 | Emergency (ER) | payer OTHER, SELFPAY ==
--- NOTE | 2024-06-05 12:29 | EXP.UTC ---
Discharge Plan Disposition Patient Disposition: Home, Self-Care Condition: Good Prescriptions Prescriptions: New azithromycin [Zithromax] 250 mg tablet 250 mg PO UD DOSE PK Qty: 6 0RF Rx Instructions: Take two (2) tablets today, then one (1) tablet days #2 thru #5 methylprednisolone 4 mg Tablets,Dose Pack 4 mg PO DIRECTED 6 Days Qty: 21 0RF Rx Instructions: Take 1 pack as directed for 6 days arpuhlbbqosuqbn-jodtxekgu-YY [Bromfed DM] 2-30-10 mg/5 mL Syrup 5 ml PO Q6H PRN (Reason: Cough) Qty: 240 0RF No Action Mirena 20 mcg/24 hours (8 yrs) 52 mg intrauterine device 1 device intrauterine ONCE hydrocodone-acetaminophen 5-325 mg tablet 1 tab PO Q6H PRN (Reason: pain) Qty: 7 0RF ondansetron 4 mg tablet,disintegrating 4 mg PO Q6H PRN (Reason: nausea and vomiting) Qty: 10 0RF amoxicillin 875 mg tablet 875 mg PO Q12H Qty: 20 0RF wcqygngncehcose-vbusnzdgn-RA [Bromfed DM] 2-30-10 mg/5 mL Syrup 5 ml PO Q6H PRN (Reason: Cough) Qty: 240 0RF Referrals Follow up/Referrals: Dannielle Ji APRN [Primary Care Provider] - See instructions Activity Restrictions/Add. Instructions Additional Instructions/Restrictions: Drink plenty of fluids. Take tylenol or ibuprofen for pain or fever. Take the medications as directed. Follow up with your regular doctor. GO TO THE ER FOR ANY WORSENING SYMPTOMS Clinical Impressions Clinical Impression: Sinusitis, Bronchitis, Exposure to influenza Instructions Patient Instructions: Sinusitis, DI for Sinusitis Print Language Print Language: Georgian Discharge ED Provider: Quinton Bledsoe [facility] [place] HPI General Stated complaint: lose of voice, flu exposure, cough, congestion Time Seen by Provider: 06/05/24 12:28 Related Data Home Medications ?Medication ?Instructions ?Recorded ?Confirmed levonorgestrel 21 mcg/24 hr (up to 1 device intrauterine ONCE 08/20/22 04/08/24 8 years) 52 mg intrauterine device control (Mirena) Previous Rx's ?Medication ?Instructions ?Recorded amoxicillin 875 mg tablet 875 mg PO Q12H #20 tabs 03/30/24 vlprtaatpmeeokl-pwdznfcxosepzkn-JZ 5 ml PO Q6H PRN Cough #240 mL 03/30/24 2 mg-30 mg-10 mg/5 mL oral syrup (Bromfed DM) hydrocodone 5 mg-acetaminophen 325 1 tab PO Q6H PRN pain #7 tabs 04/08/24 mg tablet ondansetron 4 mg disintegrating 4 mg PO Q6H PRN nausea and 04/08/24 tablet vomiting #10 tabs azithromycin 250 mg tablet 250 mg PO UD DOSE PK #6 tabs 06/05/24 (Zithromax) zzsgpkrfgqzpphj-pkbwyeaoyzvomem-QN 5 ml PO Q6H PRN Cough #240 mL 06/05/24 2 mg-30 mg-10 mg/5 mL oral syrup (Bromfed DM) methylprednisolone 4 mg tablets in 4 mg PO DIRECTED 6 days #21 tabs 06/05/24 a dose pack Allergies Allergy/AdvReac Type Severity Reaction Status Date / Time No Known Allergies Allergy Verified 04/08/24 09:07 [facility] Disclaimer: The information contained in this section may have been updated after the patient was seen, as this information can be updated by other users. Medical History (Updated 06/05/24 @ 12:43 by Quinton Bledsoe APRN) EIC (epidermal inclusion cyst) Acute viral syndrome Otitis media Bony abnormality Cyst of finger Bronchitis Plantar fasciitis of left foot IUD check up UTI (urinary tract infection) Depression Anxiety Migraine Encounter for insertion of mirena IUD depression Grief reaction Gestational diabetes New onset seizure Surgical History (Updated 04/08/24 @ 09:06 by Gi Pretty RN) History of myringotomy History of adenoidectomy History of tonsillectomy History of section Family History Other No significant family history Social History Smoking Status: Light tobacco smoker tobacco type: cigarettes packs per day: 1 second hand exposure: No alcohol intake: never substance use type: denies use current occupational status: employed Travel in the last 8 weeks: None adopted: No caregiver/support person: Yes foster care: No household members: spouse, family and children housing: house lives independently: Yes marital status: number of children: 1 education level: other service: No halfway: No current occupational exposures/hazards: No sexually active: Yes diet: diabetic physical activity: none ROS Obtained: Yes All systems reviewed & no additional complaints except as documented Constitutional Constitutional: Reports chills and Reports fever(s) Eyes Eyes: Denies eye discharge ENT Ears, Nose, Mouth, and Throat: Reports as per HPI Cardiovascular Cardiovascular: Denies chest pain Respiratory Respiratory: Denies chest congestion and Reports cough Gastrointestinal Gastrointestingal: Reports nausea; Denies abdominal pain, constipation, cramping, diarrhea or vomiting Musculoskeletal Musculoskeletal: Denies arthralgias Integumentary/Breasts Skin/Breast: Denies rash Neurologic Neurologic: Denies paresthesias Physical Exam General General appearance: alert and in no apparent distress Eye Eye exam: Present normal appearance, PERRL and EOMI ENT ENT exam: Present mucous membranes moist and normal external ear exam Expanded ENT Exam External ear exam: Present normal external inspection TM/Canal exam: Bilateral TM: erythema and bulging Nose exam: Absent sinus tenderness Nasal speculum exam: Bilateral: normal Mouth exam: Present normal external inspection; Absent drooling Teeth exam: Present normal inspection Throat exam: Present tonsillar erythema and tonsillomegaly Neck Neck exam: Present normal inspection, full ROM and trachea midline; Absent tenderness, lymphadenopathy or thyromegaly Chest Chest inspection: Present normal inspection and symmetric chest wall rise; Absent tenderness or rash Respiratory Respiratory exam: Present normal lung sounds bilaterally; Absent respiratory distress, wheezes, stridor or accessory muscle use Cardiovascular Cardiovascular exam: Present regular rate, normal rhythm and normal heart sounds Abdominal Exam Abdominal exam: Present soft; Absent distention, tenderness, guarding, rebound or rigidity Extremities Exam Extremities exam: Present normal inspection, full ROM and normal capillary refill; Absent tenderness or calf tenderness Back Exam Back exam: Present normal inspection and full ROM; Absent tenderness Neurological Exam Neurological exam: Present alert and oriented X3 Psychiatric Psychiatric exam: Present normal affect and normal mood Skin Skin exam: Present warm, dry, intact and normal color Lymphatic Lymphatic Findings: no adenopathy Medical Decision Making Medical Records Medical records reviewed: No I reviewed the patient's medical records. Screening: Per USPSTF and CDC recommendations, given the prevalence of disease in our region, it is our hospital?s policy to screen for HIV and viral Hepatitis for all patients aged 18 and over and those with ongoing risk factors. Travis Inquiry Pt receiving controlled substance: No Lab Data Lab results reviewed: Yes I reviewed the patient's lab results.
[2024-06-05 12:34] VITALS: BP 137/84; PULSE 70; RESP 18; TEMP 36.8; O2SAT 98; BMI 34.3
[2024-06-05 12:40] LABS: UTC Influenza A Antigen Negative (Negative); UTC Influenza B Antigen Negative (Negative)
[2024-06-05 12:45] VITALS: BP 137/84; PULSE 70; RESP 18; TEMP 36.8
[2024-06-05 12:51] LABS: Coronavirus 19, PCR Not Detected (NotDetected); Influenza A, PCR Not Detected (NotDetected); Influenza B, PCR Not Detected (NotDetected)
== END 2024-06-05 12:50 | disposition home or self-care (01) ==
PROVIDERS: Emergency Provider Nurse Practitioner Family; PCP Family Medicine
DX: J01.90 Acute sinusitis, unspecified (principal); J20.9 Acute bronchitis, unspecified
CPT/HCPCS: 87636; 87804; 99213; G0381

== ENCOUNTER 2024-07-31 17:27 | Emergency (ER) | payer OTHER, SELFPAY ==
[2024-07-31 17:55] VITALS: BP 121/74; PULSE 69; RESP 18; TEMP 37.2; O2SAT 100; BMI 36.5
--- NOTE | 2024-07-31 18:14 | EXP.UTC ---
Discharge Plan Disposition Patient Disposition: Home, Self-Care Condition: Good Referrals Follow up/Referrals: Dannielle Ji APRN [Primary Care Provider] - See instructions Activity Restrictions/Add. Instructions Additional Instructions/Restrictions: *Monitor Temp, Over the counter Motrin or Tylenol as directed/as needed Tylenol every 4 hours and Motrin every 6 hours (as long as your family doctor has told you that you can take it) for fever or pain. and straight to ER if unable to lower temp less than 101.0 after medication given *Warm salt water gargles may help to soothe the throat *Throat Lozenges? *Warm fluids like tea with honey may help to soothe the throat? *Sleep elevated *Humidifier/Vaporizer Follow up IMMEDIATELY for new or worsening symptoms or no Noticeable improvement over the next 48-72 hours. 911 for difficulty breathing or swallowing Clinical Impressions Clinical Impression: Viral syndrome Instructions Patient Instructions: DI for Viral Syndrome Print Language Print Language: Comoran Discharge ED Provider: Ogla Feliciano [facility] [place] HPI General Stated complaint: cough, sulma Mode of Arrival: Ambulatory Source of Information: Patient Limitations: No Limitations Time Seen by Provider: 07/31/24 18:14 Description of Symptoms (Recalled from Triage Doc. by RN): PATIENT C/O RUNNY NOSE AND CONGESTION X 2-3 DAYS HEENT Symptoms (Recalled from RN notes): Yes Resp Symptoms (Recalled from RN notes): No Skin Symptoms (Recalled from RN notes): No MS Symptoms (Recalled from RN notes): No Functional Status (Recalled from RN notes): WNL History of Present Illness Provider Complaint: Patient states that both her children have been having similar symptoms States that she has been having runny nose and cough for the last couple of days and she was concerned with the flu so she came in to get checked Related Data Allergies Allergy/AdvReac Type Severity Reaction Status Date / Time No Known Allergies Allergy Verified 04/08/24 09:07 Worker's Comp Is this a Worker's Comp case?: No [facility] Disclaimer: The information contained in this section may have been updated after the patient was seen, as this information can be updated by other users. Medical History (Updated 07/31/24 @ 18:29 by Olga Feliciano APRN) EIC (epidermal inclusion cyst) Acute viral syndrome Otitis media Bony abnormality Cyst of finger Bronchitis Plantar fasciitis of left foot IUD check up UTI (urinary tract infection) Depression Anxiety Migraine Encounter for insertion of mirena IUD depression Grief reaction Gestational diabetes New onset seizure Surgical History (Updated 04/08/24 @ 09:06 by Gi Pretty RN) History of myringotomy History of adenoidectomy History of tonsillectomy History of section Family History Other No significant family history Social History Smoking Status: Light tobacco smoker tobacco type: cigarettes packs per day: 1 second hand exposure: No alcohol intake: never substance use type: denies use current occupational status: employed Travel in the last 8 weeks: None adopted: No caregiver/support person: Yes foster care: No household members: spouse, family and children housing: house lives independently: Yes marital status: number of children: 1 education level: other service: No senior care: No current occupational exposures/hazards: No sexually active: Yes diet: diabetic physical activity: none Have you lived/traveled outside [place] in past 30 days?: No Contact w/someone who lives/traveled outside US past 30 days?: No Exposure to someone with infectious disease in past 14 days?: No Do you have a fever (greater than 100.4 F or 38 C)?: No Have you tested positive for COVID-19: No Exposed to someone with COVID-19 in past 14 days?: No Do you have a sore throat?: No Do you have a cough?: Yes Do you have any weakness?: No Do you have any diarrhea?: No Are you experiencing any unusual bleeding?: No Do you have any muscle aches/pain?: No Do you have any abdominal pain?: No Are you experiencing loss of taste or smell?: No ROS Obtained: Yes All systems reviewed & no additional complaints except as documented and Yes Systems reviewed as appropriate & no additional complaints except as documented Constitutional Constitutional: Reports system reviewed and no additional complaints, except as documented and Reports as per HPI ENT Ears, Nose, Mouth, and Throat: Reports system reviewed and no additional complaints, except as documented, Reports as per HPI, Reports nasal congestion and Reports nasal discharge Cardiovascular Cardiovascular: Reports system reviewed and no additional complaints, except as documented and Reports as per HPI Respiratory Respiratory: Reports system reviewed and no additional complaints, except as documented, Reports as per HPI and Reports cough Gastrointestinal Gastrointestingal: Reports system reviewed and no additional complaints, except as documented and as per HPI Physical Exam General General appearance: alert and in no apparent distress ENT ENT exam: Present mucous membranes moist Expanded ENT Exam Nose exam: Absent sinus tenderness Throat exam: Present normal inspection Respiratory Respiratory exam: Present normal lung sounds bilaterally; Absent respiratory distress or wheezes Cardiovascular Cardiovascular exam: Present regular rate, normal rhythm and normal heart sounds Abdominal Exam Abdominal exam: Present soft and normal bowel sounds; Absent distention or tenderness Neurological Exam Neurological exam: Present alert, oriented X3 and normal gait Medical Decision Making Medical Records Screening: Per USPSTF and CDC recommendations, given the prevalence of disease in our region, it is our hospital?s policy to screen for HIV and viral Hepatitis for all patients aged 18 and over and those with ongoing risk factors. Travis Inquiry Pt receiving controlled substance: No Travis was queried for this patient: No Vital Signs: 07/31/24 17:55 Temperature 99.0 F Temperature Source Oral Pulse Rate [Left Brachial] 69 Respiratory Rate 18 Blood Pressure [Left Arm] 121/74 Blood Pressure Mean [Left Arm] 89 Blood Pressure Source [Left Arm] Automatic Cuff Blood Pressure Position [Left Arm] Sitting 02 Sat by Pulse Oximetry 100 Oxygen Delivery Method Room Air
[2024-07-31 18:24] LABS: UTC Influenza A Antigen Negative (Negative); UTC Influenza B Antigen Negative (Negative)
[2024-07-31 18:30] VITALS: BP 121/74; PULSE 69; RESP 18; TEMP 37.2; O2SAT 100
== END 2024-07-31 18:34 | disposition home or self-care (01) ==
PROVIDERS: Emergency Provider Nurse Practitioner; PCP Family Medicine
DX: B34.9 Viral infection, unspecified (principal); R05.9 Cough, unspecified; R09.81 Nasal congestion
CPT/HCPCS: 87804; 99212; G0381